=== PATIENT | male | born 1955 | race Caucasian/White ===

== ENCOUNTER → 2016-02-20 | Outpatient (CLI) | payer MEDICARE ==
[~2016-02-20] MED LIST: ALPR.25 PO; CIAL5TAB PO; DEXA4TAB PO; DIPH2%T PO; GADODIAMIDE PF 287 MG/ML 20 ML VIAL (for RAD MRI) IV ONE; HYDR-3580 PO; OXCA300T2 PO; PROT40TA PO; TAB-TAB PO; TEST1.623 TOP; VIIB40TA PO; [UNRECOGNIZED DRUG - CODE] PO
--- NOTE | 2016-02-20 15:08 | RADRPT ---
EXAM DATE/TIME: 02/20/2016 13:41 CORRECTION Corrected on: March 11, 2016; [facility] COMPARISON: MRI BRAIN STEALTH W CONTRAST, February 20, 2015, 15:22. MRI BRAIN PERFUSION W CONTRAST, December 05, 2015, 13:35. INDICATIONS : Glioblastoma. History of tumor resection. CONTRAST: 20 cc Omniscan (gadodiamide) IV MEDICAL HISTORY : Glioblastoma. SURGICAL HISTORY : Discectomy, lumbar. Brain tumor resection, 2011 & 2014. ENCOUNTER: Initial ACUITY: 1 day PAIN SCORE: 0/10 LOCATION: cranial TECHNIQUE: Whole brain MR perfusion was performed. Parametric maps generated included time to peak, mean transi t time, cerebral blood volume and cerebral blood flow. FINDINGS: MR perfusion of the brain with parametric maps are stable. There is no evidence of increased blood f low or blood volume in the left temporal lobe. Focal postsurgical encephalomalacia surrounding gliosi s is again noted. There is dose of increasing mass effect or edema. CONCLUSION: Stable perfusion scan of the brain with no findings suspicious for recurrent neoplasm. Bobo Cantu MD on February 20, 2016 at 15:02 Board Certified Radiologist. This report was verified electronically. Bobo Cantu MD on March 11, 2016 at 14:57 Board Certified Radiologist. This report was verified electronically.
== END ==
LOC: HRAD 12:56
DX: C71.9 Malignant neoplasm of brain, unspecified (principal); T50.905A Adverse effect of unspecified drugs, medicaments and biological substances, initial encounter; Z79.899 Other long term (current) drug therapy
CPT/HCPCS: 70552; A9579

== ENCOUNTER → 2016-05-18 | Outpatient (CLI) | payer MEDICARE ==
--- NOTE | 2016-05-18 16:51 | RADRPT ---
EXAM DATE/TIME: 05/18/2016 15:31 [facility] COMPARISON: MRI BRAIN PERFUSION W CONTRAST, February 20, 2016, 13:41. INDICATIONS : Mass. CONTRAST: 20 cc Omniscan (gadodiamide) IV MEDICAL HISTORY : Chemotherapy. SURGICAL HISTORY : Fusion, lumbar. Craniotomy. ENCOUNTER: Sequela ACUITY: > 1 year PAIN SCORE: 0/10 LOCATION: head TECHNIQUE: Whole brain MR perfusion was performed. Parametric maps generated included time to peak, mean transi t time, cerebral blood volume and cerebral blood flow. FINDINGS: Post surgical changes in the left temporal lobe are stable. There is an overlying craniotomy defect a nd postsurgical encephalomalacia. There is no evidence of increasing mass effect, edema or restricted diffusion. Perfusion imaging demonstrates stable low blood volume in this area. CONCLUSION: Stable perfusion in the left temporal lobe with no findings suggestive of recurrent n eoplasm. Bobo Cantu MD on May 18, 2016 at 16:43 Board Certified Radiologist. This report was verified electronically.
== END ==
LOC: HRAD 14:35
DX: C71.9 Malignant neoplasm of brain, unspecified (principal); Z79.899 Other long term (current) drug therapy
CPT/HCPCS: 70552; A9579

== ENCOUNTER → 2016-09-07 | Outpatient (CLI) | payer MEDICARE ==
[~2016-09-07] MED LIST changes: -GADODIAMIDE PF 287 MG/ML 20 ML VIAL (for RAD MRI) IV ONE; +GADODIAMIDE PF 287 MG/ML 5 ML VIAL (for RAD MRI) IV ONE
--- NOTE | 2016-09-07 18:24 | RADRPT ---
EXAM DATE/TIME: 09/07/2016 16:41 [facility] COMPARISON: MRI BRAIN PERFUSION W CONTRAST, December 05, 2015, 13:35. MRI BRAIN PERFUSION W CONTRAST, February 20, 2016, 13:41. MRI BRAIN PERFUSION W CONTRAST, May 18, 2016, 15:31. INDICATIONS : Prior GBM4/ CONTRAST: 20 cc Omniscan (gadodiamide) IV MEDICAL HISTORY : GMB in 2011 SURGICAL HISTORY : Fusion, lumbar. GBM removed in 2011, Tumor removed in 2015 ENCOUNTER: Sequela ACUITY: 1 day PAIN SCORE: 10 LOCATION: Bilateral cranial TECHNIQUE: Whole brain MR perfusion was performed. Parametric maps generated included time to peak, mean transi t time, cerebral blood volume and cerebral blood flow. FINDINGS: History of prior surgical resection of left temporal tumor. No asymmetries of blood flow, symmetric transit time and symmetric transit time. CONCLUSION: No evidence of recurrent tumor by perfusion imaging. Donta Mccurdy MD on September 07, 2016 at 18:17 Board Certified Radiologist. This report was verified electronically.
== END ==
LOC: HRAD 15:50
DX: C71.9 Malignant neoplasm of brain, unspecified (principal); Z79.899 Other long term (current) drug therapy
CPT/HCPCS: 70552; A9579

== ENCOUNTER 2016-11-16 10:55 | Inpatient (IN) | payer MEDICARE ==
[2016-11-16] VITALS (11 sets, daily range): BP systolic 101–146; BP diastolic 73–92; PULSE 73–178; RESP 14–16; TEMP 98.2–98.6; O2SAT 94–98
[~2016-11-16 10:55] MED LIST changes: -GADODIAMIDE PF 287 MG/ML 5 ML VIAL (for RAD MRI) IV ONE
[2016-11-16] MEDS ORDERED: SODIUM CHLORIDE 0.9% FLUSH 5 ML FLUSH IV FLUSH PRN (11:15)
--- NOTE | 2016-11-16 11:24 | PD ---
HPI Chief Complaint: Neuro Symptoms/ Deficits Time Seen by Provider: 11:05 Travel History International Travel<30 days: Yes Contact w/Intl Traveler<30days: Yes Name of Country Traveled to: [place] Traveled to known affect area: No History of Present Illness HPI Patient is a 61-year-old male with a history of glioblastoma status post resection by Dr. Garcia, presents emergency department for evaluation of altered mental status. According to the the patient over the past 34 days he's had increasing aphasia both receptive and expressive. His oncologist in [place] increased his Decadron from 1 mg twice a day to 2 mg twice a day. He has not had any fevers nausea vomiting but has been complaining of a headache on the left side of his head. Patient for me is alert and oriented but when asked to do mathematical skills or reading skills is having some trouble. He certainly is anxious over this situation. He is oriented to person place and self. He is not currently on chemotherapy nor radiation. Symptoms are moderate , rapidly worsening. PFSH Past Medical History Cancer: Yes (GLIOBLASTOMA, ASTROCYTOMA) Cardiovascular Problems: No Chemotherapy: Yes Diabetes: No Endocrine: Yes (LOW TESTOSTERONE) Genitourinary: No Headaches: Yes Hepatitis: No Hiatal Hernia: No Immune Disorder: No Implanted Vascular Access Dvce: Yes Musculoskeletal: No Neurologic: Yes (BRAIN MASS, RESECTED X 2) Psychiatric: No Reproductive: No Respiratory: No Immunizations Current: Yes Radiation Therapy: Yes Seizures: Yes (ABSENT SEIZURES) Thyroid Disease: No Past Surgical History Abdominal Surgery: Yes (HERNIA REPAIR CHILD) Body Medical Devices: infusaport LT CHEST Neurologic Surgery: Yes (TUMOR RESECTION X 2) Pacemaker: No Social History Alcohol Use: Yes (FORMERLY EVERY DAY, NOW RARE) Tobacco Use: No (FORMER) Substance Use: No Allergies-Medications (Allergen,Severity, Reaction): Coded Allergies: corn syrup (Unverified Allergy, Severe, MIGRAINE, FLU LIKE SYMPTOMS, ) HIGH FRUCTOSE CORN SYRUP ONLY levetiracetam (Unverified Allergy, Severe, Rash, 11/16/16) eletriptan (Verified Allergy, Intermediate, SERATONIN SYNDROM, 11/16/16) lacosamide (Verified Allergy, Intermediate, INCREASED APHASIA, PSYCHOSIS, 11/16/16) phenytoin (Unverified Allergy, Unknown, 11/16/16) Reported Meds & Prescriptions Reported Meds & Active Scripts Active Reported Ibuprofen 400 Mg Tab 400 Mg PO Q6H PRN Multivitamins (Multiple Vitamin) 1 Cap Cap 1 Cap PO DAILY Sildenafil 20 Mg Tab 20 Mg PO DIRECTED Testosterone Cypionate Inj (Testosterone Cypionate) 100 Mg/Ml Inj 0.75 Ml IM Q21D Pantoprazole (Pantoprazole Sodium) 40 Mg Tab 40 Mg PO DAILY Alprazolam 1 Mg Tab 1 Mg PO Q8H PRN Dexamethasone 0.5 Mg Tab 0.5 Mg PO HS Dexamethasone 1.5 Mg Tab 1.5 Mg PO DAILY Oxcarbazepine 300 Mg Tab 300 Mg PO BID Viibryd (Vilazodone) 20 Mg Tab 20 Mg PO HS Review of Systems Except as stated in HPI: all other systems reviewed are Neg Physical Exam Narrative GENERAL: Well-developed, well-nourished, moderately anxious. SKIN: Focused skin assessment warm/dry. HEAD: Atraumatic. Normocephalic. EYES: Pupils equal and round. No scleral icterus. No injection or drainage. ENT: No nasal bleeding or discharge. Mucous membranes pink and moist. NECK: Trachea midline. No JVD. CARDIOVASCULAR: Regular rate and rhythm. No murmur appreciated. RESPIRATORY: No accessory muscle use. Clear to auscultation. Breath sounds equal bilaterally. GASTROINTESTINAL: Abdomen soft, non-tender, nondistended. Hepatic and splenic margins not palpable. MUSCULOSKELETAL: No obvious deformities. No clubbing. No cyanosis. No edema. NEUROLOGICAL: Awake and alert. Oriented 4. Cranial nerves II through XII are grossly intact and nonfocal. There is 5 out of 5 strength in all 4 extremities. Patient's speech is normal however he is having difficulty finding some words. When asked 7+7 he responds 24 and then questions me multiple times about 77 versus 72 and tries to change the questioning per PSYCHIATRIC: Appropriate mood and affect; insight and judgment normal. Data Data Last Documented VS Vital Signs Date Time Temp Pulse Resp B/P (MAP) Pulse Ox O2 Delivery O2 Flow Rate FiO2 11/16/16 11:10 16 16 97 Room Air 11/16/16 11:00 98.6 146/92 (110) Orders Orders Electrocardiogram (11/16/16 11:12) Complete Blood Count With Diff (11/16/16 11:12) Comprehensive Metabolic Panel (11/16/16 11:12) Creatine Kinase (Cpk) (11/16/16 11:12) Prothrombin Time / Inr (Pt) (11/16/16 11:12) Act Partial Throm Time (Ptt) (11/16/16 11:12) Troponin I (11/16/16 11:12) Thyroid Stimulating Hormone (11/16/16 11:12) Urinalysis - C+S If Indicated (11/16/16 11:12) Ct Brain W/O Iv Contrast(Rout) (11/16/16 11:12) Blood Glucose (11/16/16 11:12) Ecg Monitoring (11/16/16 11:12) Iv Access Insert/Monitor (11/16/16 11:12) Oximetry (11/16/16 11:12) Sodium Chloride 0.9% Flush (Ns Flush) (11/16/16 11:15) Carbamazepine (Tegretol) (11/16/16 11:12) Dexamethasone Inj (Decadron Inj) (11/16/16 11:45) Consult Neurosurgery (11/16/16 ) Consult Neurology (11/16/16 ) Admit Order (Ed Use Only) (11/16/16 ) Labs Laboratory Tests Test 11/16/16 11:25 11/16/16 12:00 White Blood Count 9.1 TH/MM3 Red Blood Count 5.23 MIL/MM3 Hemoglobin 15.5 GM/DL Hematocrit 46.9 % Mean Corpuscular Volume 89.7 FL Mean Corpuscular Hemoglobin 29.7 PG Mean Corpuscular Hemoglobin Concent 33.1 % Red Cell Distribution Width 14.3 % Platelet Count 171 TH/MM3 Mean Platelet Volume 7.4 FL Neutrophils (%) (Auto) 78.1 % Lymphocytes (%) (Auto) 14.1 % Monocytes (%) (Auto) 6.3 % Eosinophils (%) (Auto) 0.6 % Basophils (%) (Auto) 0.9 % Neutrophils # (Auto) 7.0 TH/MM3 Lymphocytes # (Auto) 1.3 TH/MM3 Monocytes # (Auto) 0.6 TH/MM3 Eosinophils # (Auto) 0.1 TH/MM3 Basophils # (Auto) 0.1 TH/MM3 CBC Comment DIFF FINAL Differential Comment Prothrombin Time 10.0 SEC Prothromb Time International Ratio 0.9 RATIO Activated Partial Thromboplast Time 25.0 SEC Blood Urea Nitrogen 14 MG/DL Creatinine 0.89 MG/DL Random Glucose 126 MG/DL Total Protein 6.5 GM/DL Albumin 3.3 GM/DL Calcium Level 8.1 MG/DL Alkaline Phosphatase 79 U/L Aspartate Amino Transf (AST/SGOT) 10 U/L Alanine Aminotransferase (ALT/SGPT) 33 U/L Total Bilirubin 0.5 MG/DL Sodium Level 138 MEQ/L Potassium Level 3.7 MEQ/L Chloride Level 104 MEQ/L Carbon Dioxide Level 28.3 MEQ/L Anion Gap 6 MEQ/L Estimat Glomerular Filtration Rate 87 ML/MIN Total Creatine Kinase 48 U/L Troponin I LESS THAN 0.02 NG/ML Thyroid Stimulating Hormone 3rd Gen 1.790 uIU/ML Carbamazepine (Tegretol) Level LESS THAN 0.5 MCG/ML Urine Color YELLOW Urine Turbidity CLEAR Urine pH 7.0 Urine Specific Reader 1.008 Urine Protein NEG mg/dL Urine Glucose (UA) NEG mg/dL Urine Ketones NEG mg/dL Urine Occult Blood NEG Urine Nitrite NEG Urine Bilirubin NEG Urine Leukocyte Esterase NEG Urine WBC 0-2 /hpf Urine Squamous Epithelial Cells 0-5 /hpf Microscopic Urinalysis Comment CULT NOT INDICATED MDM Medical Decision Making Medical Screen Exam Complete: Yes Emergency Medical Condition: Yes Interpretation(s) EKG shows normal sinus rhythm normal axis normal R-wave progression. No concerning ST segment changes. Intervals within normal limits. This is a normal EKG. Differential Diagnosis Cerebral edema, recurrent tumor, electrolyte abnormality, Tegretol toxicity. Narrative Course Patient roomed emergency department, has a history of glioblastoma of the temporal lobe, presents emergency department with a few day history of expressive and receptive aphasia. Patient today was noted by to have decreased concentration, inappropriate answers and decided to come in and be seen. CAT scan of the head shows significant edema of the left side with left to right shift. The patient was discussed with his neurologist Dr. Cabral as well as Dr. Woodall was chief telephone operator for his surgeon Dr. Stevens. The patient is followed by an oncologist in [place] who recently increased his Decadron 2 mg by mouth twice a day. He was given 10 mg of Decadron in the emergency department, patient per Dr. Woodall should be admitted to the intensive surgical unit at the [facility]. MRI has been suggested by radiologist as well as Dr. Woodall which has been ordered. Coordinating with EMS patient is stabilized the best my ability. Critical Care Narrative Aggregate critical care time was 35 minutes. Time to perform other separately billable procedures was not included in the critical care time. My time did not include minutes spent treating any other patients simultaneously or on activities that did not directly contribute to the patient's treatment. The services I provided to this patient were to treat and/or prevent clinically significant deterioration that could result in: , disability, organ failure I provided critical care services requiring my management, as noted below: Chart data review, documentation time, medication orders and management, vital sign assessments/reviewing monitor data, ordering and reviewing lab tests, ordering and interpreting/reviewing x-rays and diagnostic studies, care of the patient and discussion of the patient with the admitting physicians. Diagnosis Primary Impression: Cerebral edema Admitting Information Admitting Physician Requests: Admit Condition: Nhan Jennings MD Nov 16, 2016 11:24
[2016-11-16 11:36] LABS: BASOPHIL # 0.1 TH/MM3 (0-0.2); BASOPHIL % 0.9 % (0.0-2.0); EOSINOPHIL # 0.1 TH/MM3 (0-0.4); EOSINOPHIL % 0.6 % (0.0-4.0); HEMATOCRIT 46.9 % (39.0-51.0); LYMPH % 14.1 % (9.0-44.0); LYMPHOCYTE # 1.3 TH/MM3 (1.0-4.8); MEAN CELL VOLUME 89.7 FL (80.0-100.0); MEAN CORPUSCULAR HEMOGLOBIN 29.7 PG (27.0-34.0); MEAN CORPUSCULAR HGB CONC 33.1 % (32.0-36.0); MONO % 6.3 % (0.0-8.0); NEUT % 78.1 % (16.0-70.0); PLATELET COUNT 171 TH/MM3 (150-450); RED BLOOD COUNT 5.23 MIL/MM3 (4.50-5.90); RED CELL DISTRIBUTION WIDTH 14.3 % (11.6-17.2); WHITE BLOOD COUNT 9.1 TH/MM3 (4.0-11.0)
[2016-11-16] MEDS ORDERED: VIIB20TA PO (11:37)
[2016-11-16] MEDS ORDERED: IBUP400T20 PO (11:37)
[2016-11-16] MEDS ORDERED: TEST1INJ3 IM (11:37)
[2016-11-16] MEDS ORDERED: OXCA300T PO (11:37)
[2016-11-16] MEDS ORDERED: SILD20TA11 PO (11:37)
[2016-11-16] MEDS ORDERED: DEXA0.5T PO (11:37)
[2016-11-16] MEDS ORDERED: MULTCAP3 PO (11:37)
[2016-11-16] MEDS ORDERED: PANT40TA3 PO (11:37)
[2016-11-16] MEDS ORDERED: ALPR1TAB3 PO (11:37)
[2016-11-16] MEDS ORDERED: DEXA1.5T PO (11:37)
[2016-11-16 11:38] LABS: HEMO FLAGS DIFF FINAL
[2016-11-16] MEDS ORDERED: DEXAMETHASONE SOD PHOS 20 MG/5 ML VIAL IV PUSH ONE (11:45)
--- NOTE | 2016-11-16 11:52 | RADRPT ---
EXAM DATE/TIME: 11/16/2016 11:28 [facility] COMPARISON: MRI BRAIN PERFUSION W CONTRAST, September 07, 2016, 16:41. CT BRAIN W/O CONTRAST, August 07, 2011, 9:15. INDICATIONS : Aphasia. RADIATION DOSE: 58.35 CTDIvol (mGy) MEDICAL HISTORY : Glioblastoma. Astrocytoma. SURGICAL HISTORY : Brain tumor resection, twice-last one about over a year ago. ENCOUNTER: Initial ACUITY: 3 weeks PAIN SCALE: 0/10 LOCATION: Cranial TECHNIQUE: Multiple contiguous axial images were obtained of the head. Using automated exposure control and adj ustment of the mA and/or kV according to patient size, radiation dose was kept as low as reasonably a chievable to obtain optimal diagnostic quality images. DICOM format image data is available electro nically for review and comparison. FINDINGS: There has been deterioration in the appearance of the scan with increasing edema in the left temporal lobe extending into left parieto-occipital region when compared to the study of 07/2011 and the most recent MRI perfusion study. Posterior fossa is unremarkable. There is very minimal left to right shift. Findings have been discussed with Dr. Bunn. MRI with contrast pending. CONCLUSION: Deterioration in appearance of scan as described above. Contrast MRI is pending. Ronaldo Franco MD FACR on November 16, 2016 at 11:39 Board Certified Radiologist. This report was verified electronically.
[2016-11-16 11:53] LABS: CHLORIDE 104 MEQ/L (98-107); POTASSIUM 3.7 MEQ/L (3.5-5.1); SODIUM (NA) 138 MEQ/L (136-145)
[2016-11-16 11:57] LABS: ANION GAP 6 MEQ/L (5-15); BICARBONATE 28.3 MEQ/L (21.0-32.0); BLOOD UREA NITROGEN 14 MG/DL (7-18)
[2016-11-16 11:59] LABS: INTERNATIONAL NORMALIZED RATIO 0.9 RATIO
[2016-11-16 12:00] LABS: ALT (GPT) 33 U/L (12-78); AST (GOT) 10 U/L (15-37); GLOMERULAR FILTRATION RATE 87 ML/MIN (>89)
[2016-11-16 12:01] LABS: TOTAL BILIRUBIN ADULT 0.5 MG/DL (0.2-1.0)
[2016-11-16 12:03] LABS: ALKALINE PHOSPHATASE 79 U/L (45-117)
[2016-11-16 12:09] LABS: BLOOD, URINE NEG (NEG); GLUCOSE,URINE NEG (NEG); KETONE, URINE NEG (NEG); NITRITE,URINE NEG (NEG)
[2016-11-16 12:16] LABS: URINE COLOR YELLOW (YELLW/STRAW)
[2016-11-16 12:17] LABS: COMMENT (UR) CULT NOT INDICATED; CULTURE IF INDICATED CULT NOT INDICATED; SQUAMOUS EPITHELIAL CELL URINE 0-5 /hpf (0-5); WBC, URINE 0-2 /hpf (0-5)
[2016-11-16 12:20] LABS: CREATINE KINASE 48 U/L (39-308)
--- NOTE | 2016-11-16 12:59 | HHI.HP ---
[facility] Service Critical Care Medicine Primary Care Physician Felipe Yates, DO Admission Diagnosis Cerebral Edema Diagnosis: Chief Complaint: Headache Travel History International Travel<30 Days: Yes Contact w/Intl Traveler <30 Da: Yes Name of Country Traveled to: [place] Traveled to Known Affected Are: No History of Present Illness 61 y/o man s/p resection of left hemispheric glioblastoma presents with neurological symptoms and CT evidence of mass effect from tumor recurrence left parietal region. Received decadron in [facility] ED and now transferred to [facility]. Past Family Social History Allergies: Coded Allergies: corn syrup (Unverified Allergy, Severe, MIGRAINE, FLU LIKE SYMPTOMS, ) HIGH FRUCTOSE CORN SYRUP ONLY levetiracetam (Unverified Allergy, Severe, Rash, 11/16/16) eletriptan (Verified Allergy, Intermediate, SERATONIN SYNDROM, 11/16/16) lacosamide (Verified Allergy, Intermediate, INCREASED APHASIA, PSYCHOSIS, 11/16/16) phenytoin (Unverified Allergy, Unknown, 11/16/16) Past Medical History Past Medical History Cancer: Yes (GLIOBLASTOMA, ASTROCYTOMA) Cardiovascular Problems: No Chemotherapy: Yes Diabetes: No Endocrine: Yes (LOW TESTOSTERONE) Genitourinary: No Headaches: Yes Hepatitis: No Hiatal Hernia: No Immune Disorder: No Implanted Vascular Access Dvce: Yes Musculoskeletal: No Neurologic: Yes (BRAIN MASS, RESECTED X 2) Psychiatric: No Reproductive: No Respiratory: No Immunizations Current: Yes Radiation Therapy: Yes Seizures: Yes (ABSENT SEIZURES) Thyroid Disease: No Past Surgical History Abdominal Surgery: Yes (HERNIA REPAIR CHILD) Body Medical Devices: infusaport LT CHEST Neurologic Surgery: Yes (TUMOR RESECTION X 2) Pacemaker: No Social History Alcohol Use: Yes (FORMERLY EVERY DAY, NOW RARE) Tobacco Use: No (FORMER) Substance Use: No Allergies-Medications Allergies-Medications (Allergen,Severity, Reaction): Coded Allergies: corn syrup (Unverified Allergy, Severe, MIGRAINE, FLU LIKE SYMPTOMS, ) HIGH FRUCTOSE CORN SYRUP ONLY levetiracetam (Unverified Allergy, Severe, Rash, 11/16/16) eletriptan (Verified Allergy, Intermediate, SERATONIN SYNDROM, 11/16/16) lacosamide (Verified Allergy, Intermediate, INCREASED APHASIA, PSYCHOSIS, 11/16/16) phenytoin (Unverified Allergy, Unknown, 11/16/16) Reported Meds & Prescriptions Reported Meds & Active Scripts Active Protonix (Pantoprazole Sodium) 40 Mg Tabdr 40 Mg PO DAILY Decadron 4 mg (Dexamethasone) 4 Mg Tab 1 Tab PO BID 30 Days Hydrocodone/Acetaminophen 7.5 mg/325 mg 1 Tab 1 Tab PO Q6H Xanax 0.25 Mg (Alprazolam) Alprazolam 0.25 mg Tab 1 Tab PO Q8HR PRN Reported Papaya Enzyme (Papaya) Chw 2 Chew PO HS PRN Multivitamin (Multivitamins) 1 Tab Tab 1 Tab PO DAILY Benadryl (Diphenhydramine HCl) 25 Mg Cap 25 Mg PO HS PRN Viibryd (Vilazodone) 40 Mg Tab 20 Mg PO BID Cialis (Tadalafil) 5 Mg Tab 5 Mg PO QID Androgel (Testosterone) 1.62 % Gel 1.62 % TOP DAILY 2 "PUMPS", PER SPOUSE Oxcarbazepine 300 Mg Tab 600 Mg PO BID Physical Exam Vital Signs Vital Signs Date Time Temp Pulse Resp B/P (MAP) Pulse Ox O2 Delivery O2 Flow Rate FiO2 11/16/16 12:51 79 16 124/83 (97) 96 11/16/16 11:10 16 16 97 Room Air 11/16/16 11:00 16 96 Room Air 11/16/16 11:00 98.6 73 16 146/92 (110) 96 Physical Exam GENERAL: Anxious male. HEAD: Atraumatic. Normocephalic. EYES: Pupils equal and round. NECK: Trachea midline. Airway widely patent. CARDIOVASCULAR: Regular rate and rhythm. No murmur appreciated. No JVD. RESPIRATORY: No accessory muscle use. Clear to auscultation. Breath sounds equal bilaterally. GASTROINTESTINAL: Abdomen soft, non-tender, nondistended. No guarding. MUSCULOSKELETAL: No obvious deformities. No clubbing. No cyanosis. No edema. Well perfused. NEUROLOGICAL: Awake and alert. Oriented 3. 5 out of 5 strength in all 4 extremities. Patient is having difficulty finding words. Laboratory Laboratory Tests Test 11/16/16 11:25 11/16/16 12:00 White Blood Count 9.1 Red Blood Count 5.23 Hemoglobin 15.5 Hematocrit 46.9 Mean Corpuscular Volume 89.7 Mean Corpuscular Hemoglobin 29.7 Mean Corpuscular Hemoglobin Concent 33.1 Red Cell Distribution Width 14.3 Platelet Count 171 Mean Platelet Volume 7.4 Neutrophils (%) (Auto) 78.1 Lymphocytes (%) (Auto) 14.1 Monocytes (%) (Auto) 6.3 Eosinophils (%) (Auto) 0.6 Basophils (%) (Auto) 0.9 Neutrophils # (Auto) 7.0 Lymphocytes # (Auto) 1.3 Monocytes # (Auto) 0.6 Eosinophils # (Auto) 0.1 Basophils # (Auto) 0.1 CBC Comment DIFF FINAL Differential Comment Prothrombin Time 10.0 Prothromb Time International Ratio 0.9 Activated Partial Thromboplast Time 25.0 Blood Urea Nitrogen 14 Creatinine 0.89 Random Glucose 126 Total Protein 6.5 Albumin 3.3 Calcium Level 8.1 Alkaline Phosphatase 79 Aspartate Amino Transf (AST/SGOT) 10 Alanine Aminotransferase (ALT/SGPT) 33 Total Bilirubin 0.5 Sodium Level 138 Potassium Level 3.7 Chloride Level 104 Carbon Dioxide Level 28.3 Anion Gap 6 Estimat Glomerular Filtration Rate 87 Total Creatine Kinase 48 Troponin I LESS THAN 0.02 Thyroid Stimulating Hormone 3rd Gen 1.790 Carbamazepine (Tegretol) Level LESS THAN 0.5 Urine Color YELLOW Urine Turbidity CLEAR Urine pH 7.0 Urine Specific [place] 1.008 Urine Protein NEG Urine Glucose (UA) NEG Urine Ketones NEG Urine Occult Blood NEG Urine Nitrite NEG Urine Bilirubin NEG Urine Leukocyte Esterase NEG Urine WBC 0-2 Urine Squamous Epithelial Cells 0-5 Microscopic Urinalysis Comment CULT NOT INDICATED Result Diagram: 11/16/16 1125 11/16/16 1125 Caprini VTE Risk Assessment Caprini VTE Risk Assessment: Mod/High Risk (score >= 2) Caprini Risk Assessment Model Point Value = 1 Point Value = 2 Point Value = 3 Point Value = 5 Age 41-60 Minor surgery BMI > 25 kg/m2 Swollen legs Varicose veins or History of unexplained or recurrent spontaneous Oral contraceptives or hormone replacement Sepsis (< 1 month) Serious lung disease, including pneumonia (< 1 month) Abnormal pulmonary function Acute myocardial infarction Congestive heart failure (< 1 month) History of inflammatory bowel disease Medical patient at bed rest Age 61-74 Arthroscopic surgery Major open surgery (> 45 min) Laparoscopic surgery (> 45 min) Malignancy Confined to bed (> 72 hours) Immobilizing plaster cast Central venous access Age >= 75 History of VTE Family history of VTE Factor V Leiden Prothrombin [id number] Lupus anticoagulant Anticardiolipin antibodies Elevated serum homocysteine Heparin-induced thrombocytopenia Other congenital or acquired thrombophilia Stroke (< 1 month) Elective arthroplasty Hip, pelvis, or leg fracture Acute spinal cord injury (< 1 month) Prophylaxis Regimen Total Risk Factor Score Risk Level Prophylaxis Regimen 0-1 Low Early ambulation 2 Moderate Order ONE of the following: *Sequential Compression Device (SCD) *Heparin 5000 units SQ BID 3-4 Higher Order ONE of the following medications: *Heparin 5000 units SQ TID *Enoxaparin/Lovenox 40 mg SQ daily (WT < 150 kg, CrCl > 30 mL/min) *Enoxaparin/Lovenox 30 mg SQ daily (WT < 150 kg, CrCl > 10-29 mL/min) *Enoxaparin/Lovenox 30 mg SQ BID (WT < 150 kg, CrCl > 30 mL/min) AND/OR *Sequential Compression Device (SCD) 5 or more Highest Order ONE of the following medications: *Heparin 5000 units SQ TID (Preferred with Epidurals) *Enoxaparin/Lovenox 40 mg SQ daily (WT < 150 kg, CrCl > 30 mL/min) *Enoxaparin/Lovenox 30 mg SQ daily (WT < 150 kg, CrCl > 10-29 mL/min) *Enoxaparin/Lovenox 30 mg SQ BID (WT < 150 kg, CrCl > 30 mL/min) AND *Sequential Compression Device (SCD) Assessment and Plan Assessment and Plan Assessment: 1. Glioblastoma left hemisphere. Plan: 1. Decadron. 2. Minimal iv fluid. 3. Mannitol prn. 4. protonix. 5. SCDs. 6. Tylenol for headache. 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 Critical cerebral edema requiring immediate decadron therapy increase and possibly mannitol if he becomes more lethargic. Critical care 38 mins Dmitry Mims MD Nov 16, 2016 12:59
[2016-11-16] MEDS ORDERED: ALPRAZolam 1 MG TAB PO ONE (13:00)
[2016-11-16] MEDS ORDERED: BISACODYL 10 MG SUPP RECTAL PRN (13:15)
[2016-11-16] MEDS ORDERED: LACTULOSE SYRUP 20 GM/30 ML CUP PO PRN (13:15)
[2016-11-16] MEDS ORDERED: MAGNESIUM HYDROXIDE SUSP 30 ML CUP PO PRN (13:15)
[2016-11-16] MEDS ORDERED: ALPRAZolam 0.5 MG TAB PO ONE (13:15)
[2016-11-16] MEDS ORDERED: SENNOSIDES 8.6 MG TAB PO PRN (13:15)
[2016-11-16] MEDS ORDERED: ONDANSETRON HCL 4 MG/2 ML VIAL IV PUSH PRN (13:15)
[2016-11-16] MEDS ORDERED: CHLORHEXIDINE GLUCONATE 2 % 1 PACK (2 CLOTHS) TOP PRN (13:15)
[2016-11-16] MEDS ORDERED: MISCELLANEOUS NURSING INFORMATION XX SCH (13:15)
[2016-11-16] MEDS ORDERED: ALPRAZolam 1 MG TAB PO PRN (13:15)
[2016-11-16] MEDS: ACETAMINOPHEN 325 MG TAB PO PRN (13:43)
[2016-11-16] MEDS ORDERED: GADODIAMIDE PF 287 MG/ML 5 ML VIAL (for RAD MRI) IVCONTRAST ONE (14:46)
[2016-11-16] MEDS: SODIUM CHLOR 0.9% 1000 ML INJ 1,000 ML IV SCH (15:06)
--- NOTE | 2016-11-16 15:19 | RADRPT ---
EXAM DATE/TIME: 11/16/2016 14:29 [facility] COMPARISON: MRI BRAIN PERFUSION W CONTRAST, December 05, 2015, 13:35. INDICATIONS : Tumor. CONTRAST: 18 cc Omniscan (gadodiamide) IV MEDICAL HISTORY : Glioblastoma. SURGICAL HISTORY : Craniotomy. Discectomy, lumbar. Brain tumor resection, 2011 & 2016. ENCOUNTER: Sequela ACUITY: > 1 year PAIN SCORE: 3/10 LOCATION: Cranial TECHNIQUE: Multiplanar, multisequence MRI of the brain was performed both prior to and following the administration of paramagnetic contrast. FINDINGS: There is a large area of vasogenic edema that extends from the temporal lobe into the r ight parietal occipital region. There is a separate small focus of edema in the orbital frontal douglas on. Following intravenous administration of contrast there is patchy contrast enhancement through a large portion of this area all suspicious for recurrent tumor. There is approximately 4 mm of left to righ t shift. There is no parenchymal hemorrhage. The right hemisphere is unremarkable. Posterior fossa appears normal. CONCLUSION: 1. Findings would be consistent with recurrent tumor and increasing vasogenic edema that now involves the left parietal occipital region. 2. I do not have any interval MRIs. Ronaldo Franco MD FACR on November 16, 2016 at 15:08 Board Certified Radiologist. This report was verified electronically.
--- NOTE | 2016-11-16 16:04 | EKG ---
Date Performed: 11/16/2016 Time Performed: 11:20:33 PTAGE: 61 years EKG: Sinus rhythm Compared to prior tracing no significant change NORMAL ECG PREVIOUS TRACING : 02/13/2015 13.30 DOCTOR: Xander Francis Interpretating Date/Time 11/16/2016 16:02:13
--- NOTE | 2016-11-16 16:49 | PD.CONS ---
HPI Consult Requested By Primary Care Physician Felipe Yates, DO Past Family Social History Allergies: Coded Allergies: corn syrup (Unverified Allergy, Severe, MIGRAINE, FLU LIKE SYMPTOMS, ) HIGH FRUCTOSE CORN SYRUP ONLY levetiracetam (Unverified Allergy, Severe, Rash, 11/16/16) eletriptan (Verified Allergy, Intermediate, SERATONIN SYNDROM, 11/16/16) lacosamide (Verified Allergy, Intermediate, INCREASED APHASIA, PSYCHOSIS, 11/16/16) phenytoin (Unverified Allergy, Unknown, 11/16/16) Physical Exam Vital Signs Vital Signs Date Time Temp Pulse Resp B/P (MAP) Pulse Ox O2 Delivery O2 Flow Rate FiO2 11/16/16 14:57 16 11/16/16 14:54 80 16 126/83 (97) 96 Room Air 11/16/16 13:40 77 16 142/85 (104) 96 Room Air 11/16/16 12:51 79 16 124/83 (97) 96 11/16/16 11:10 16 16 97 Room Air 11/16/16 11:00 16 96 Room Air 11/16/16 11:00 98.6 73 16 146/92 (110) 96 Laboratory Laboratory Tests Test 11/16/16 11:25 11/16/16 12:00 White Blood Count 9.1 Red Blood Count 5.23 Hemoglobin 15.5 Hematocrit 46.9 Mean Corpuscular Volume 89.7 Mean Corpuscular Hemoglobin 29.7 Mean Corpuscular Hemoglobin Concent 33.1 Red Cell Distribution Width 14.3 Platelet Count 171 Mean Platelet Volume 7.4 Neutrophils (%) (Auto) 78.1 Lymphocytes (%) (Auto) 14.1 Monocytes (%) (Auto) 6.3 Eosinophils (%) (Auto) 0.6 Basophils (%) (Auto) 0.9 Neutrophils # (Auto) 7.0 Lymphocytes # (Auto) 1.3 Monocytes # (Auto) 0.6 Eosinophils # (Auto) 0.1 Basophils # (Auto) 0.1 CBC Comment DIFF FINAL Differential Comment Prothrombin Time 10.0 Prothromb Time International Ratio 0.9 Activated Partial Thromboplast Time 25.0 Blood Urea Nitrogen 14 Creatinine 0.89 Random Glucose 126 Total Protein 6.5 Albumin 3.3 Calcium Level 8.1 Alkaline Phosphatase 79 Aspartate Amino Transf (AST/SGOT) 10 Alanine Aminotransferase (ALT/SGPT) 33 Total Bilirubin 0.5 Sodium Level 138 Potassium Level 3.7 Chloride Level 104 Carbon Dioxide Level 28.3 Anion Gap 6 Estimat Glomerular Filtration Rate 87 Total Creatine Kinase 48 Troponin I LESS THAN 0.02 Thyroid Stimulating Hormone 3rd Gen 1.790 Carbamazepine (Tegretol) Level LESS THAN 0.5 Urine Color YELLOW Urine Turbidity CLEAR Urine pH 7.0 Urine Specific [place] 1.008 Urine Protein NEG Urine Glucose (UA) NEG Urine Ketones NEG Urine Occult Blood NEG Urine Nitrite NEG Urine Bilirubin NEG Urine Leukocyte Esterase NEG Urine WBC 0-2 Urine Squamous Epithelial Cells 0-5 Microscopic Urinalysis Comment CULT NOT INDICATED Result Diagram: 11/16/16 1125 11/16/16 1125 Duncan Woodall MD Nov 16, 2016 16:49
[2016-11-16] MEDS: MORPHINE SULFATE 4 MG/ML INJ IV PUSH PRN ×2 (17:15→20:40)
--- NOTE | 2016-11-16 17:43 | PD.CONS ---
[facility] Service neurosurgery Consult Requested By howard SMITH Reason for Consult brain mass Primary Care Physician Felipe Yates, DO History of Present Illness This is a 61-year-old male with a history of glioblastoma multiforme, status post resection by Dr. Stevens. He presents emergency department for evaluation of altered mental status. According to the the patient over the past days he's had increasing aphasia both receptive and expressive. His oncologist in [place] increased his Decadron from 1 mg twice a day to 2 mg twice a day. He has not had any fevers nausea vomiting but has been complaining of a headache on the left side of his head. Patient for me is alert and oriented but when asked to do mathematical skills or reading skills is having some trouble. He certainly is anxious over this situation. He is oriented to person place and self. He is not currently on chemotherapy nor radiation. His symptoms are rapidly worsening. Review of Systems Endocrine: DENIES: Heat/cold intolerance, Polydipsia, Polyuria, Polyphagia Eyes: COMPLAINS OF: Eye inflammation, DENIES: Blurred vision, Diplopia, Eye pain, Vision loss, Photosensitivity, Double Vision Ears, nose, mouth, throat: DENIES: Tinnitus, Hearing loss, Vertigo, Nasal discharge, Oral lesions, Throat pain, Hoarseness, Ear Pain, Running Nose, Epistaxis, Sinus Pain, Toothache, Odynophagia Respiratory: DENIES: Apneas, Cough, Snoring, Wheezing, Hemoptysis, Sputum production, Shortness of breath Cardiovascular: DENIES: Chest pain, Palpitations, Syncope, Dyspnea on Exertion , PND, Lower Extremity Edema, Orthopnea, Claudication Gastrointestinal: DENIES: Abdominal pain, Black stools, Bloody stools, Constipation, Diarrhea, Nausea, Vomiting, Difficulty Swallowing, Anorexia Genitourinary: DENIES: Sexual dysfunction, Urinary frequency, Urinary incontinence, Urgency, Hematuria, Dysuria, Nocturia, Penile Discharge, Testicular Pain, Testicular Swelling Musculoskeletal: DENIES: Joint pain, Muscle aches, Stiffness, Joint Swelling, Back pain, Neck pain Integumentary: DENIES: Abnormal pigmentation, Nail changes, Pruritus, Rash Hematologic/lymphatic: DENIES: Bruising, Lymphadenopathy Immunologic/allergic: DENIES: Eczema, Urticaria Neurologic: COMPLAINS OF: Headache, DENIES: Abnormal gait, Localized weakness, Paresthesias, Seizures, Speech Problems, Tremor, Poor Balance Psychiatric: COMPLAINS OF: Confusion, DENIES: Anxiety, Mood changes, Depression , Hallucinations, Agitation, Suicidal Ideation, Homicidal Ideation, Delusions Past Family Social History Allergies: Coded Allergies: corn syrup (Unverified Allergy, Severe, MIGRAINE, FLU LIKE SYMPTOMS, ) HIGH FRUCTOSE CORN SYRUP ONLY levetiracetam (Unverified Allergy, Severe, Rash, 11/16/16) eletriptan (Verified Allergy, Intermediate, SERATONIN SYNDROM, 11/16/16) lacosamide (Verified Allergy, Intermediate, INCREASED APHASIA, PSYCHOSIS, 11/16/16) phenytoin (Unverified Allergy, Unknown, 11/16/16) Past Medical History Cancer: Yes (GLIOBLASTOMA, ASTROCYTOMA) Cardiovascular Problems: No Chemotherapy: Yes Diabetes: No Endocrine: Yes (LOW TESTOSTERONE) Genitourinary: No Headaches: Yes Hepatitis: No Hiatal Hernia: No Immune Disorder: No Implanted Vascular Access Dvce: Yes Musculoskeletal: No Neurologic: Yes (BRAIN MASS, RESECTED X 2) Psychiatric: No Reproductive: No Respiratory: No Immunizations Current: Yes Radiation Therapy: Yes Seizures: Yes (ABSENT SEIZURES) Thyroid Disease: No Past Surgical History Abdominal Surgery: Yes (HERNIA REPAIR CHILD) Body Medical Devices: infusaport LT CHEST Neurologic Surgery: Yes (TUMOR RESECTION X 2) Pacemaker: No Reported Medications Protonix (Pantoprazole Sodium) 40 Mg Tabdr 40 Mg PO DAILY Decadron 4 mg (Dexamethasone) 4 Mg Tab 1 Tab PO BID 30 Days Hydrocodone/Acetaminophen 7.5 mg/325 mg 1 Tab 1 Tab PO Q6H Xanax 0.25 Mg (Alprazolam) Alprazolam 0.25 mg Tab 1 Tab PO Q8HR PRN Active Ordered Medications Current Medications IV Flush (NS Flush) 2 ml UNSCH PRN IV FLUSH FLUSH AFTER USING IV ACCESS; Start 11/16/16 at 11:15 Dexamethasone Sodium Phosphate (Decadron Inj) 10 mg ONCE ONCE IV PUSH Last administered on 11/16/16t 11:52; Start 11/16/16 at 11:45; Stop 11/16/16 at 11:48 ; Status DC Alprazolam (Xanax) 1 mg ONCE ONCE PO ; Start 11/16/16 at 13:00; Stop 11/16/16 at 13:16; Status DC Sodium Chloride 1,000 ml @ 20 mls/hr Q24H IV Last administered on 11/17/16 13:54; Start 11/16/16 at 13:04 Acetaminophen (Tylenol) 650 mg Q6H PRN PO PAIN 1-10 AND/OR FEVER >101F Last administered on 11/17/16 14:06; Start 11/16/16 at 13:15 Morphine Sulfate (Morphine Inj) 2 mg Q2H PRN IV PUSH PAIN SCALE 6 TO 10 Last administered on 11/17/16 15:45; Start 11/16/16 at 13:15 Pantoprazole Sodium (Protonix) 40 mg DAILY PO Last administered on 11/17/16 08:01; Start 11/17/16 at 09:00 Ondansetron HCl (Zofran Inj) 4 mg Q6H PRN IV PUSH NAUSEA OR VOMITING; Start at 13:15 Miscellaneous Information 1 Q361D XX ; Start 11/16/16 at 13:15 Chlorhexidine Gluconate (Chlorhexidine 2% Cloth) 3 pack Taper DAILY@04 TOP ; Start 11/17/16 at 04:00; Stop 11/13/17 at 03:59 Chlorhexidine Gluconate (Chlorhexidine 2% Cloth) 3 pack UNSCH PRN TOP HYGIENIC CARE; Start 11/16/16 at 13:15 Senna/Docusate Sodium (Irene-Colace) 1 tab BID PO Last administered on 08:01; Start 11/16/16 at 21:00 Magnesium Hydroxide (Milk Of Magnesia Liq) 30 ml Q12H PRN PO MILD - MODERATE CONSTIPATION; Start 11/16/16 at 13:15 Sennosides (Senokot) 17.2 mg Q12H PRN PO MODERATE - SEVERE CONSTIPATION; Start 11/16/16 at 13:15 Bisacodyl (Dulcolax Supp) 10 mg DAILY PRN RECTAL SEVERE CONSITIPATION; Start 11/16/16 at 13:15 Lactulose (Lactulose Liq) 30 ml DAILY PRN PO SEVERE CONSITIPATION; Start at 13:15 Alprazolam (Xanax) 1 mg Q8H PRN PO ANXIETY; Start 11/16/16 at 13:15 Oxcarbazepine (Trileptal) 300 mg BID PO Last administered on 11/17/16 08:20; Start 11/16/16 at 21:00 Patient Own Medication PT OWN MED: VILAZOD... HS PO ; Start 11/16/16 at 21:00; Status Future Hold Dexamethasone Sodium Phosphate (Decadron Inj) 6 mg Q6HR IV PUSH Last administered on 11/17/16 13:55; Start 11/16/16 at 18:00 Alprazolam (Xanax) 1 mg ONCE ONCE PO Last administered on 11/16/16 13:37; Start 11/16/16 at 13:15; Stop 11/16/16 at 13:16; Status DC Gadodiamide (Omniscan Pf Inj) 18 ml STK-MED ONCE IVCONTRAST Last administered on 11/16/16 14:46; Start 11/16/16 at 14:46; Stop 11/16/16 at 14:47; Status DC Family History His Family history was reviewed and noncontributory to this admission events Social History Alcohol Use: Yes (FORMERLY EVERY DAY, NOW RARE) Tobacco Use: No (FORMER) Substance Use: No Physical Exam Vital Signs Vital Signs Date Time Temp Pulse Resp B/P (MAP) Pulse Ox O2 Delivery O2 Flow Rate FiO2 11/16/16 17:19 16 11/16/16 14:57 16 11/16/16 14:54 80 16 126/83 (97) 96 Room Air 11/16/16 13:40 77 16 142/85 (104) 96 Room Air 11/16/16 12:51 79 16 124/83 (97) 96 11/16/16 11:10 16 16 97 Room Air 11/16/16 11:00 16 96 Room Air 11/16/16 11:00 98.6 73 16 146/92 (110) 96 Physical Exam Mr. Car is alert, confused, oriented to self only. Attempts to converse but dysphasic. Cranial nerve examination: pupils equal, round, and reactive to light. Extra- ocular movements are grossly intact. Facial motor function appears normal and symmetrical. Neck is soft and supple. Motor: moving all four extremities Deep tendon reflexes are 1+ bilaterally. There is a bilateral plantar flexion response. Cerebellar examination is limited due to the patient condition Laboratory Laboratory Tests Test 11/16/16 11:25 11/16/16 12:00 White Blood Count 9.1 Red Blood Count 5.23 Hemoglobin 15.5 Hematocrit 46.9 Mean Corpuscular Volume 89.7 Mean Corpuscular Hemoglobin 29.7 Mean Corpuscular Hemoglobin Concent 33.1 Red Cell Distribution Width 14.3 Platelet Count 171 Mean Platelet Volume 7.4 Neutrophils (%) (Auto) 78.1 Lymphocytes (%) (Auto) 14.1 Monocytes (%) (Auto) 6.3 Eosinophils (%) (Auto) 0.6 Basophils (%) (Auto) 0.9 Neutrophils # (Auto) 7.0 Lymphocytes # (Auto) 1.3 Monocytes # (Auto) 0.6 Eosinophils # (Auto) 0.1 Basophils # (Auto) 0.1 CBC Comment DIFF FINAL Differential Comment Prothrombin Time 10.0 Prothromb Time International Ratio 0.9 Activated Partial Thromboplast Time 25.0 Blood Urea Nitrogen 14 Creatinine 0.89 Random Glucose 126 Total Protein 6.5 Albumin 3.3 Calcium Level 8.1 Alkaline Phosphatase 79 Aspartate Amino Transf (AST/SGOT) 10 Alanine Aminotransferase (ALT/SGPT) 33 Total Bilirubin 0.5 Sodium Level 138 Potassium Level 3.7 Chloride Level 104 Carbon Dioxide Level 28.3 Anion Gap 6 Estimat Glomerular Filtration Rate 87 Total Creatine Kinase 48 Troponin I LESS THAN 0.02 Thyroid Stimulating Hormone 3rd Gen 1.790 Carbamazepine (Tegretol) Level LESS THAN 0.5 Urine Color YELLOW Urine Turbidity CLEAR Urine pH 7.0 Urine Specific [place] 1.008 Urine Protein NEG Urine Glucose (UA) NEG Urine Ketones NEG Urine Occult Blood NEG Urine Nitrite NEG Urine Bilirubin NEG Urine Leukocyte Esterase NEG Urine WBC 0-2 Urine Squamous Epithelial Cells 0-5 Microscopic Urinalysis Comment CULT NOT INDICATED Result Diagram: 11/16/16 1125 11/16/16 1125 Imaging Last [address] 11/16/16 1112 Signed Impressions: Service Date/Time: Wednesday, November 16, 2016 11:28 - CONCLUSION: Deterioration in appearance of scan as described above. Contrast MRI is pending. Ronaldo Franco MD FACR Attending Statement neuro checks in a serial fashion. A follow-up MRI of the brain will be obtained in 24 hours. Decadron 6 mg IV every 6 hrs Pulmonary. aggressive pulmonary toilette, nasotracheal suction, and breathing treatments with nebulizers. Nutrition. Oral diet Renal. monitor closely urine output, BUN and creatinine Spencer in place. Monitor intake and output. Monitor electrolytes and replace as indicated per ICU electrolyte replacement protocol. ENDO:Acute hyperglycemia secondary to trauma. Monitor bedside glucose and initiate low-dose insulin sliding scale as indicated for glucose greater than 180 central venous line A-line insertion for hemodynamic monitoring Protonix for stress ulcer prophylaxis Tim lee and SCD's for DVT prophylaxis. Duncan Woodall MD Nov 16, 2016 17:43
[2016-11-16] MEDS: DEXAMETHASONE SOD PHOS 4 MG/ML VIAL IV PUSH SCH (19:10)
[2016-11-16] MEDS: OXcarbazepine 300 MG TAB PO SCH (20:38)
[2016-11-16] MEDS: DOCUSATE SODIUM 50 MG/SENNA 8.6 MG TAB PO SCH (20:39)
[2016-11-16] MEDS ORDERED: VILAZODONE 20 MG PO SCH (21:00)
[2016-11-17] VITALS (9 sets, daily range): BP systolic 117–164; BP diastolic 75–100; PULSE 70–96; RESP 10–20; TEMP 97.6–98.3; O2SAT 91–98
[2016-11-17] MEDS: DEXAMETHASONE SOD PHOS 4 MG/ML VIAL IV PUSH SCH ×5 (00:36→23:31)
[2016-11-17] MEDS: CHLORHEXIDINE GLUCONATE 2 % 1 PACK (2 CLOTHS) TOP SCH (04:00)
[2016-11-17] MEDS: DOCUSATE SODIUM 50 MG/SENNA 8.6 MG TAB PO SCH ×2 (08:01→20:32)
[2016-11-17] MEDS: PANTOPRAZOLE SOD 40 MG DELAYED RELEASE TAB PO SCH (08:01)
[2016-11-17] MEDS: OXcarbazepine 300 MG TAB PO SCH ×2 (08:20→20:32)
[2016-11-17] MEDS: ACETAMINOPHEN 325 MG TAB PO PRN ×2 (08:35→14:06)
--- NOTE | 2016-11-17 09:06 | HHI.CCPN ---
Subjective Remarks/Hospital Course 61 y/o man s/p resection of left hemispheric glioblastoma presents with neurological symptoms and CT evidence of mass effect from tumor recurrence left parietal region. Received decadron in [facility] ED and now transferred to [facility]. 11/17: MRI reveals recurrent glioblastoma involving left hemisphere with speech and gi technician difficulties. Improved modestly with increased Decadron dosing. Neurosurgery to see. Objective Vital Signs Date Time Temp Pulse Resp B/P (MAP) Pulse Ox O2 Delivery O2 Flow Rate FiO2 11/17/16 08:00 98.1 70 20 125/79 (94) 98 11/17/16 07:00 Room Air 11/16/16 19:20 21 Intake and Output 11/17/16 11/17/16 11/18/16 08:00 16:00 00:00 Intake Total 173 ml Output Total 850 ml Balance -677 ml Result Diagram: 11/16/16 1125 11/16/16 1125 Objective Remarks GENERAL: Anxious male. HEAD: Atraumatic. Normocephalic. EYES: Pupils equal and round. NECK: Trachea midline. Airway widely patent. CARDIOVASCULAR: Regular rate and rhythm. No murmur appreciated. No JVD. RESPIRATORY: No accessory muscle use. Clear to auscultation. Breath sounds equal bilaterally. GASTROINTESTINAL: Abdomen soft, non-tender, nondistended. No guarding. MUSCULOSKELETAL: No obvious deformities. No clubbing. No cyanosis. No edema. Well perfused. NEUROLOGICAL: Awake and alert. Oriented 3. 5 out of 5 strength in all 4 extremities. Patient is having difficulty finding words. Tracks with eyes. A/P Assessment and Plan Assessment: 1. Glioblastoma left hemisphere. Plan: 1. Decadron. 2. Minimal iv fluid. 3. Mannitol prn. 4. protonix. 5. SCDs. 6. Tylenol for headache. Overall impression: Recurrent malignancy left hemisphere with symptoms involving speech, gi technician. Critical cerebral edema requiring immediate increased decadron therapy increase and possibly mannitol if he becomes more lethargic. Neurosurgery to review. Dmitry Mims MD Nov 17, 2016 09:06
[2016-11-17] MEDS: MORPHINE SULFATE 4 MG/ML INJ IV PUSH PRN ×4 (11:19→23:29)
--- NOTE | 2016-11-17 12:43 | HHI.NSPN ---
(Haylee Dudley) Note Status Status: Progress Note (Haylee Dudley) Interval History Interval History Mr. Car is a 61 y/o male with history of glioblastoma multiforme. He had undergone a left temporal lobe resection of glioblastoma multiforme with Dr. Stevens on 02/21/15. He has completed chemoradiation therapy. He presented to [facility] ED due to increasing aphasia over the past 3-4 days. MRI Brain completed shows recurrent tumor with vasogenic edema. He has been started on Decadron. Currently awake, alert, appears comfortable but with dysphasia. (Haylee Dudley) Labs, Micro, & Vital Signs Results Date Time Temp Pulse Resp B/P (MAP) Pulse Ox O2 Delivery O2 Flow Rate FiO2 11/17/16 12:02 98.0 96 20 164/100 (121) 97 11/17/16 08:00 98.1 70 20 125/79 (94) 98 11/17/16 08:00 70 11/17/16 07:00 97 Room Air 11/17/16 06:00 94 11/17/16 04:00 80 11/17/16 04:00 97.7 80 10 117/75 (89) 95 11/17/16 02:00 74 11/17/16 00:00 97.7 74 11 131/76 (94) 91 11/17/16 00:00 74 11/16/16 21:17 14 11/16/16 21:14 72 14 112/74 (87) 99 11/16/16 20:10 98.2 75 14 119/83 (95) 96 11/16/16 19:20 96 21 11/16/16 18:55 178 16 108/75 (86) 94 Room Air 11/16/16 17:55 80 16 101/73 (82) 96 Room Air 11/16/16 16:55 82 16 125/77 (93) 95 Room Air 11/16/16 16:30 80 16 95 Room Air 11/16/16 15:55 78 16 108/76 (87) 94 Room Air 11/16/16 14:57 16 11/16/16 14:54 80 16 126/83 (97) 96 Room Air 11/16/16 13:40 77 16 142/85 (104) 96 Room Air 11/16/16 12:51 79 16 124/83 (97) 96 Constitutional Vital Signs Date Time Temp Pulse Resp B/P (MAP) Pulse Ox O2 Delivery O2 Flow Rate FiO2 11/17/16 12:02 98.0 96 20 164/100 (121) 97 11/17/16 08:00 98.1 70 20 125/79 (94) 98 11/17/16 08:00 70 11/17/16 07:00 97 Room Air 11/17/16 06:00 94 11/17/16 04:00 80 11/17/16 04:00 97.7 80 10 117/75 (89) 95 11/17/16 02:00 74 11/17/16 00:00 97.7 74 11 131/76 (94) 91 11/17/16 00:00 74 11/16/16 21:17 14 11/16/16 21:14 72 14 112/74 (87) 99 11/16/16 20:10 98.2 75 14 119/83 (95) 96 11/16/16 19:20 96 21 11/16/16 18:55 178 16 108/75 (86) 94 Room Air 11/16/16 17:55 80 16 101/73 (82) 96 Room Air 11/16/16 16:55 82 16 125/77 (93) 95 Room Air 11/16/16 16:30 80 16 95 Room Air 11/16/16 15:55 78 16 108/76 (87) 94 Room Air 11/16/16 14:57 16 11/16/16 14:54 80 16 126/83 (97) 96 Room Air 11/16/16 13:40 77 16 142/85 (104) 96 Room Air 11/16/16 12:51 79 16 124/83 (97) 96 (Haylee Dudley) Review of Systems ROS Limitations: Clinical Condition, Poor Historian (Haylee Dudley) Physical Exam Mr. Car is alert, confused, oriented to self only. Attempts to converse but dysphasic. Cranial nerve examination: pupils equal, round, and reactive to light. Extra- ocular movements are grossly intact. Facial motor function appears normal and symmetrical. Neck is soft and supple. Motor: moving all four extremities Deep tendon reflexes are 1+ bilaterally. There is a bilateral plantar flexion response. Cerebellar examination is limited due to the patient condition (Haylee Dudley) Mr. Car is alert, confused, oriented to self only. Attempts to converse but dysphasic. Cranial nerve examination: pupils equal, round, and reactive to light. Extra- ocular movements are grossly intact. Facial motor function appears normal and symmetrical. Neck is soft and supple. Motor: moving all four extremities Deep tendon reflexes are 1+ bilaterally. There is a bilateral plantar flexion response. Cerebellar examination is limited due to the patient condition (Duncan Woodall MD) Medications Current Medications Current Medications Medications (Trade) Dose Ordered Sig/Ne Route PRN Reason Start Time Stop Time Status Last Admin Dose Admin IV Flush (NS Flush) 2 ml UNSCH PRN IV FLUSH FLUSH AFTER USING IV ACCESS 11/16/16 11:15 Sodium Chloride 1,000 ml @ 20 mls/hr Q24H IV 11/16/16 13:04 11/16/16 15:06 Acetaminophen (Tylenol) 650 mg Q6H PRN PO PAIN 1-10 AND/OR FEVER >101F 11/16/16 13:15 11/17/16 08:35 Morphine Sulfate (Morphine Inj) 2 mg Q2H PRN IV PUSH PAIN SCALE 6 TO 10 11/16/16 13:15 11/17/16 11:19 Pantoprazole Sodium (Protonix) 40 mg DAILY PO 11/17/16 09:00 11/17/16 08:01 Ondansetron HCl (Zofran Inj) 4 mg Q6H PRN IV PUSH NAUSEA OR VOMITING 11/16/16 13:15 Miscellaneous Information 1 Q361D XX 11/16/16 13:15 Chlorhexidine Gluconate (Chlorhexidine 2% Cloth) 3 pack Taper DAILY@04 TOP 11/17/16 04:00 11/13/17 03:59 Chlorhexidine Gluconate (Chlorhexidine 2% Cloth) 3 pack UNSCH PRN TOP HYGIENIC CARE 11/16/16 13:15 Senna/Docusate Sodium (Irene-Colace) 1 tab BID PO 11/16/16 21:00 11/17/16 08:01 Magnesium Hydroxide (Milk Of Magnesia Liq) 30 ml Q12H PRN PO MILD - MODERATE CONSTIPATION 11/16/16 13:15 Sennosides (Senokot) 17.2 mg Q12H PRN PO MODERATE - SEVERE CONSTIPATION 11/16/16 13:15 Bisacodyl (Dulcolax Supp) 10 mg DAILY PRN RECTAL SEVERE CONSITIPATION 11/16/16 13:15 Lactulose (Lactulose Liq) 30 ml DAILY PRN PO SEVERE CONSITIPATION 11/16/16 13:15 Alprazolam (Xanax) 1 mg Q8H PRN PO ANXIETY 11/16/16 13:15 Oxcarbazepine (Trileptal) 300 mg BID PO 11/16/16 21:00 11/17/16 08:20 Patient Own Medication PT OWN MED: VILAZOD... HS PO 11/16/16 21:00 Future Hold Dexamethasone Sodium Phosphate (Decadron Inj) 6 mg Q6HR IV PUSH 11/16/16 18:00 11/17/16 06:03 (Haylee Dudley) Medical Decision Making MDM Remarks 61 y/o male with high grade glioma, s/p resection by Dr. Stevens and previous chemoradiation tx, with recurrent tumor and vasogenic edema on MRI 11/16/16 Aphasia (Haylee Dudley) Plan Plan Remarks cont Decadron Protonix for GI prophylaxis start PT, OT, ST cont serial neuro checks Dr. Woodall defers further surgical plans to Dr. Stevens upon his return this will follow, (Haylee Dudley) Attending Statement As above Slowly responding to steroids. Discussed with his family Discussed with Dr Jackson The exam, history, and the medical decision-making described in the above note were completed with the assistance of the mid-level provider. I reviewed and agree with the findings presented. I attest that I had a [id number] encounter with the patient on the same day, and personally performed and documented my assessment and findings in the medical record. (Duncan Woodall MD) Haylee Dudley Nov 17, 2016 12:43 Duncan Woodall MD Nov 18, 2016 13:06
[2016-11-17] MEDS: SODIUM CHLOR 0.9% 1000 ML INJ 1,000 ML IV SCH (13:54)
--- NOTE | 2016-11-17 20:27 | MB ---
cc: ARMINDA CORDOBA M.D. DATE OF CONSULTATION 11/17/[address] Woodall. REASON FOR CONSULTATION Oncology consulted to render opinion regarding patient with recurrent glioblastoma. HISTORY OF PRESENT ILLNESS The patient is very pleasant 61-year-old male first diagnosed with glioblastoma in 2011. He had a resection followed by radiation and Temodar completed in September of 2011. He was on maintenance Temodar for one year. In February of 2015 he developed progression of disease and had a re-excision which showed anaplastic glioma. He received stereotactic radiation therapy in 2015. After that he was on Temodar for about 10 months and then switched to Avastin for several months which he completed earlier this year. He was doing well but about a month ago he started having aphasia. He also had left-sided headache. He was evaluated by his neurologist. The symptoms at first was thought due to his anti seizure medications. His primary oncologist Dr. Muller also increased the Decadron from 1 mg twice a day to 2 mg twice a day. However, the patient's symptoms are progressively getting worse. He came to the emergency room and MRI showed significant vasogenic edema on the left side of the brain. He was started on Decadron. He states that he is feeling a little better. Today his speech has improved. His headache also has improved. Denies any visual changes. Denies any chest pain, palpitation, any shortness of breath, cough, any nausea or vomiting. Denies any abdominal pain. PAST MEDICAL HISTORY 1. Glioblastoma. 2. Osteoarthritis. 3. Depression. 4. Hypothyroidism. 5. Seizure. PAST SURGICAL HISTORY 1. Resection of brain tumor twice. 2. Port placement. 3. Hernia repair. FAMILY HISTORY Noncontributory. SOCIAL HISTORY Quit tobacco. Drinks rarely. ALLERGIES PHENYTOIN, KEPPRA, LACOSAMIDE, ELETRIPTAN, CORN SYRUP. MEDICATIONS Current medications: 1. Protonix. 2. Decadron. 3. Irene-Colace. 4. Trileptal. REVIEW OF SYSTEMS CONSTITUTIONAL: Negative. EYES: Negative. ENT: Negative. CARDIOVASCULAR: Negative. RESPIRATORY: Negative. GASTROINTESTINAL: Denies nausea, vomiting, diarrhea or abdominal pain. GENITOURINARY: No dysuria, hematuria. MUSCULOSKELETAL: Negative. HEMATOLOGIC: Negative. ENDOCRINE: Negative. DERMATOLOGIC: Negative. PSYCHIATRIC: Negative. NEUROLOGIC: As above. PHYSICAL EXAMINATION VITAL SIGNS: Temperature 97.6, blood pressure 130/77, O2 saturation 96% room air. GENERAL: He is alert and oriented times three in no acute distress. HEENT: Atraumatic, normocephalic. Pupils equal, round and reactive to light. Extraocular muscles intact. No scleral icterus. Oropharynx dry mucosa. No lesion. NECK: No thyromegaly. No palpable mass. LYMPHATICS: No palpable cervical, clavicular, axillary or inguinal lymph nodes. CARDIOVASCULAR: Regular S1-S2. No murmur. LUNGS: Clear to auscultation bilaterally without wheezing or rhonchi. ABDOMEN: Soft, nontender. I could not palpate liver or spleen. EXTREMITIES: No cyanosis. No clubbing. No edema. No calf tenderness. BACK: No paravertebral tenderness. SKIN: No rash or petechiae. NEUROLOGIC: He has aphasia but no other focal deficits. LABORATORY DATA Reviewed. ASSESSMENT 1. Recurrent glioblastoma. He was first diagnosed with glioblastoma in 2011. He had a resection followed by concurrent radiation with Temodar in September 2011. He was then on Temodar for one year. In February of 2015 he developed progression of disease. He had a reexcision in February of 2015. Pathology showed recurrent glioblastoma. He then received stereotactic radiation. He was on Temodar for 10 months and Avastin for 2-3 months after that. He now represented with aphasia and mental status change. MRI showed significant vasogenic edema extending from the right temporal lobe into the right parietal occipital region. There is also a separate small focus of edema in the orbital frontal region. In August of this year he had a MRI with perfusion which did not show any evidence of recurrent disease. He was started on Decadron and his aphasia has improved. I had an extensive discussion with the patient, his and the family regarding the radiologic finding. I told them that he appeared to have recurrent brain tumor again. We will need neurosurgery's opinion to see if patient is still a surgical candidate for resection. We will also need radiation oncologist opinion to see if there is any more room for further radiation. If the patient is not a candidate for surgical resection or radiation then he will need treatment with Avastin. The patient and family had some questions today which were answered. 2. Hypogonadism. 3. Osteoarthritis. 4. Seizure disorder. RECOMMENDATIONS 1. Await neurosurgery and radiation oncology opinions to see if the patient is a candidate for further surgical resection or radiation, if not, he could receive Avastin. 2. Continue Decadron. Thank you Dr. Woodall, Dr. Reyes for asking me to see this patient. MD KATHRYN Mustafa/JAGJIT /6:09 PM /7:47 PM BASHIR
--- NOTE | 2016-11-17 22:55 | MB ---
cc: DENAE RUSH M.D. DATE OF CONSULTATION 11/17/16 REASON FOR CONSULTATION Tumor HISTORY OF PRESENT ILLNESS Mr. Car is a very nice 61-year-old man who has previous history of left hemisphere glioblastoma multiforme diagnosed in 2011 initially treated with resection followed by Temodar and radiation therapy which was completed in September of 2011. He continued Temodar for a year. He developed progressive disease in 2016 in February and had a repeat excision and that showed anaplastic glioma. He received stereotactic radiation therapy in 2016 and continued Temodar for 10 months and then switched to Avastin for several months. He has also been on Trileptal for focal seizures and has been stable until about three weeks ago. He started developing difficulty with his speech. This progressed and he came to the ER yesterday and MRI showed significant vasogenic edema left side of the brain consistent with recurrent tumor. He has been started on Decadron with improvement in his speech. He has had no recurrent seizures. PERSONAL HISTORY 1. History of glioblastoma 2. Osteoarthritis 3. Depression, 4. Hypothyroidism 5. Seizures 6. Resection of brain tumor in the past. MEDICATIONS Current are 1. Protonix 40 mg IV daily. 2. Irene-Colace. 3. Trileptal 300 mg b.i.d. 4. Decadron 6 mg q.6 h. 5. Tylenol p.r.n. 6. Morphine p.r.n. 7. Zofran p.r.n. 8. Senokot p.r.n. 9. Xanax p.r.n. 10. Lactulose p.r.n. NEUROLOGIC EXAMINATION His blood pressure is 125/79, pulse is 70, respiratory rate is 20, temperature 98 degrees. Higher cortical function - he is alert. Speech is non-fluent. He has difficulty following commands and repeating. Cranial nerves intact. Motor exam no focal weakness. Reflexes are symmetric. IMAGING STUDIES Reviewed the MRI of the brain which was done yesterday. There is a large area of vasogenic edema in the left parieto-occipital area consistent with recurrent increasing size of tumor. LABORATORY DATA White count is 9100, hemoglobin 15.5, hematocrit 46.9% platelet count 171,000, PT 10, INR 0.9, APTT 25. Sodium is 138, potassium 3.7, chloride 104, CO2 28.3, BUN is 14, creatinine 0.89, GFR is 87, glucose 126, AST 10, ALT 33. Urinalysis is normal. IMPRESSION 1. Recurrent left hemisphere tumor. 2. Secondary seizures which are stable on current dose of Trileptal. MD RAMYA Sauceda/ /10:10 PM /10:43 PM
[2016-11-18] VITALS (8 sets, daily range): BP systolic 131–153; BP diastolic 74–90; PULSE 75–83; RESP 16–20; TEMP 97.3–98.2; O2SAT 92–98
[2016-11-18] MEDS: CHLORHEXIDINE GLUCONATE 2 % 1 PACK (2 CLOTHS) TOP SCH (04:00)
[2016-11-18] MEDS: DEXAMETHASONE SOD PHOS 4 MG/ML VIAL IV PUSH SCH ×3 (05:49→18:13)
[2016-11-18] MEDS: PANTOPRAZOLE SOD 40 MG DELAYED RELEASE TAB PO SCH (09:59)
[2016-11-18] MEDS: OXcarbazepine 300 MG TAB PO SCH ×2 (09:59→20:36)
[2016-11-18] MEDS: DOCUSATE SODIUM 50 MG/SENNA 8.6 MG TAB PO SCH ×2 (10:00→20:36)
[2016-11-18] MEDS: MORPHINE SULFATE 4 MG/ML INJ IV PUSH PRN ×4 (10:10→20:37)
--- NOTE | 2016-11-18 10:54 | HHI.PR ---
Subjective Remarks in no acute distress. complaining of on and off headache. no nausea/vomiting. no seizures. Objective Vitals Vital Signs Date Time Temp Pulse Resp B/P (MAP) Pulse Ox O2 Delivery O2 Flow Rate FiO2 11/18/16 10:35 Room Air 11/18/16 08:00 98.2 79 16 135/87 (103) 98 11/18/16 04:00 97.8 82 20 131/74 (93) 94 11/18/16 00:00 97.9 83 20 141/90 (107) 92 11/17/16 22:36 96 11/17/16 22:31 Room Air 11/17/16 20:00 98.3 83 20 138/81 (100) 94 11/17/16 16:01 97.6 88 20 131/77 (95) 96 11/17/16 12:02 98.0 96 20 164/100 (121) 97 I/O 11/17/16 11/17/16 11/17/16 11/18/16 11/18/16 11/18/16 06:59 14:59 22:59 06:59 14:59 22:59 Intake Total 173 ml Output Total 850 ml 320 ml 325 ml Balance -677 ml -320 ml -325 ml Intake IV Total 173 ml Output Urine Total 850 ml 320 ml 325 ml Result Diagram: 11/16/16 1125 11/16/16 1125 Imaging Last Impressions Head CT 11/16/16 1112 Signed Impressions: Service Date/Time: Wednesday, November 16, 2016 11:28 - CONCLUSION: Deterioration in appearance of scan as described above. Contrast MRI is pending. Ronaldo Franco MD FACR Brain MRI 11/16/16 0000 Signed Impressions: Service Date/Time: Wednesday, November 16, 2016 14:29 - CONCLUSION: 1. Findings would be consistent with recurrent tumor and increasing vasogenic edema that now involves the left parietal occipital region. 2. I do not have any interval MRIs. Ronaldo Franco MD FACR Objective Remarks GENERAL: This is a well-nourished, well-developed patient, in no apparent distress. CARDIOVASCULAR: Regular rate and regular rhythm without murmurs, gallops, or rubs. RESPIRATORY: Clear to auscultation. Breath sounds equal bilaterally. No wheezes , rales, or rhonchi. GASTROINTESTINAL: Abdomen soft, non-tender, nondistended. Normal, active bowel sounds MUSCULOSKELETAL: Extremities without clubbing, cyanosis, or edema. NEURO: Alert & Oriented x4 to person, place, time, situation. Moves all ext x4 Medications and IVs Current Medications IV Flush (NS Flush) 2 ml UNSCH PRN IV FLUSH FLUSH AFTER USING IV ACCESS; Start 11/16/16 at 11:15 Dexamethasone Sodium Phosphate (Decadron Inj) 10 mg ONCE ONCE IV PUSH Last administered on 11/16/16 11:52; Start 11/16/16 at 11:45; Stop 11/16/16 at 11:48 ; Status DC Alprazolam (Xanax) 1 mg ONCE ONCE PO ; Start 11/16/16 at 13:00; Stop 11/16/16 at 13:16; Status DC Sodium Chloride 1,000 ml @ 20 mls/hr Q24H IV Last administered on 11/17/16 13:54; Start 11/16/16 at 13:04 Acetaminophen (Tylenol) 650 mg Q6H PRN PO PAIN 1-10 AND/OR FEVER >101F Last administered on 11/17/16 14:06; Start 11/16/16 at 13:15 Morphine Sulfate (Morphine Inj) 2 mg Q2H PRN IV PUSH PAIN SCALE 6 TO 10 Last administered on 11/18/16 10:10; Start 11/16/16 at 13:15 Pantoprazole Sodium (Protonix) 40 mg DAILY PO Last administered on 11/18/16 09:59; Start 11/17/16 at 09:00 Ondansetron HCl (Zofran Inj) 4 mg Q6H PRN IV PUSH NAUSEA OR VOMITING; Start at 13:15 Miscellaneous Information 1 Q361D XX ; Start 11/16/16 at 13:15 Chlorhexidine Gluconate (Chlorhexidine 2% Cloth) 3 pack Taper DAILY@04 TOP ; Start 11/17/16 at 04:00; Stop 11/13/17 at 03:59 Chlorhexidine Gluconate (Chlorhexidine 2% Cloth) 3 pack UNSCH PRN TOP HYGIENIC CARE; Start 11/16/16 at 13:15 Senna/Docusate Sodium (Irene-Colace) 1 tab BID PO Last administered on 10:00; Start 11/16/16 at 21:00 Magnesium Hydroxide (Milk Of Magnesia Liq) 30 ml Q12H PRN PO MILD - MODERATE CONSTIPATION Last administered on 11/17/16 20:45; Start 11/16/16 at 13:15 Sennosides (Senokot) 17.2 mg Q12H PRN PO MODERATE - SEVERE CONSTIPATION; Start 11/16/16 at 13:15 Bisacodyl (Dulcolax Supp) 10 mg DAILY PRN RECTAL SEVERE CONSITIPATION; Start 11/16/16 at 13:15 Lactulose (Lactulose Liq) 30 ml DAILY PRN PO SEVERE CONSITIPATION Last administered on 11/18/16 10:10; Start 11/16/16 at 13:15 Alprazolam (Xanax) 1 mg Q8H PRN PO ANXIETY; Start 11/16/16 at 13:15 Oxcarbazepine (Trileptal) 300 mg BID PO Last administered on 11/18/16 09:59; Start 11/16/16 at 21:00 Patient Own Medication PT OWN MED: VILAZOD... HS PO ; Start 11/16/16 at 21:00; Status Future Hold Dexamethasone Sodium Phosphate (Decadron Inj) 6 mg Q6HR IV PUSH Last administered on 11/18/16 05:49; Start 11/16/16 at 18:00 Alprazolam (Xanax) 1 mg ONCE ONCE PO Last administered on 11/16/16 13:37; Start 11/16/16 at 13:15; Stop 11/16/16 at 13:16; Status DC Gadodiamide (Omniscan Pf Inj) 18 ml STK-MED ONCE IVCONTRAST Last administered on 11/16/16 14:46; Start 11/16/16 at 14:46; Stop 11/16/16 at 14:47; Status DC A/P Assessment and Plan A/P - glioblastoma- s/p resection continue with Decadron and Trileptal. continue with PT neurology,neurosurgery and oncology following. -DVT prophylaxis with SCD's. Gary Sood MD Nov 18, 2016 10:54
--- NOTE | 2016-11-18 12:40 | PD.ONC.PN ---
Subjective Subjective Remarks Afebrile Reports his headache is about the same Aphasia is improved Waiting to speak to radiation oncology Objective Data Date Time Temp Pulse Resp B/P (MAP) Pulse Ox O2 Delivery O2 Flow Rate FiO2 11/18/16 11:35 78 11/18/16 10:35 Room Air 11/18/16 08:00 98.2 79 16 135/87 (103) 98 11/18/16 04:00 97.8 82 20 131/74 (93) 94 11/18/16 00:00 97.9 83 20 141/90 (107) 92 11/17/16 22:36 96 11/17/16 22:31 Room Air 11/17/16 20:00 98.3 83 20 138/81 (100) 94 11/17/16 16:01 97.6 88 20 131/77 (95) 96 11/18/16 11/18/16 11/18/16 06:59 14:59 22:59 Output Total 325 ml Balance -325 ml Result Diagram: 11/16/16 1125 11/16/16 1125 Administered Medications Medications (Trade) Dose Ordered Sig/Ne Route PRN Reason Start Time Stop Time Status Last Admin Dose Admin Sodium Chloride 1,000 ml @ 20 mls/hr Q24H IV 11/16/16 13:04 11/17/16 13:54 Acetaminophen (Tylenol) 650 mg Q6H PRN PO PAIN 1-10 AND/OR FEVER >101F 11/16/16 13:15 11/17/16 14:06 Morphine Sulfate (Morphine Inj) 2 mg Q2H PRN IV PUSH PAIN SCALE 6 TO 10 11/16/16 13:15 11/18/16 10:10 Pantoprazole Sodium (Protonix) 40 mg DAILY PO 11/17/16 09:00 11/18/16 09:59 Senna/Docusate Sodium (Irene-Colace) 1 tab BID PO 11/16/16 21:00 11/18/16 10:00 Magnesium Hydroxide (Milk Of Magnesia Liq) 30 ml Q12H PRN PO MILD - MODERATE CONSTIPATION 11/16/16 13:15 11/17/16 20:45 Lactulose (Lactulose Liq) 30 ml DAILY PRN PO SEVERE CONSITIPATION 11/16/16 13:15 11/18/16 10:10 Oxcarbazepine (Trileptal) 300 mg BID PO 11/16/16 21:00 11/18/16 09:59 Dexamethasone Sodium Phosphate (Decadron Inj) 6 mg Q6HR IV PUSH 11/16/16 18:00 11/18/16 05:49 Objective Remarks GENERAL: Older male asleep in bed on approach in no acute distress SKIN: Warm and dry. HEAD: Normocephalic. EYES: No injection or drainage. NECK: Supple, trachea midline. CARDIOVASCULAR: Regular rate and rhythm without murmurs. RESPIRATORY: Clear anteriorly. Breathing unlabored. GASTROINTESTINAL: Abdomen soft, non-tender, nondistended. EXTREMITIES: No cyanosis, or edema. NEUROLOGICAL: Normal speech. Moving all extremities. Assessment/Plan Problem List: (1) Glioblastoma multiforme of temporal lobe ICD Codes: C71.2 - Malignant neoplasm of temporal lobe Status: Acute Plan: -- Await input from neurosurgery, radiation XRT -- On decadron Hx/Workup: Patient was first diagnosed with glioblastoma in 2011. At that time he had a resection followed by radiation and Temodar. He was on maintenance Temodar for 1 year. He had progression of disease in February 2015 and had a reexcision which showed anaplastic glioma. He received stereotactic radiation therapy. He was placed on Temodar for approximately 10 months then switched back to Avastin which he completed earlier this year. Unfortunately he began to have aphasia and left-sided headache approximately 4 weeks ago. He was progressively more symptomatic and came to the emergency room where an MRI showed significant vasogenic edema on the left side of the brain Assessment 61-year-old male with history of glioblastoma admitted with aphasia and headache found to have recurrent tumor and significant vasogenic edema Plan 1. Await neurosurgery and radiation oncology input 2. If the patient is not a candidate for either of these then we will treat him with Avastin. 3. Continue Decadron 4. Supportive care Attending Statement The exam, history, and the medical decision-making described in the above note were completed with the assistance of the mid-level provider. I reviewed and agree with the findings presented. I attest that I had a [id number] encounter with the patient on the same day, and personally performed and documented my assessment and findings in the medical record. Continue to improved. No headache. Await neurosurgery and radiation oncology recommendation. If he is not a candidate for local therapy, then he can treated with Avastin. Lesly Novak Nov 18, 2016 12:40 Michael Valdez MD Nov 18, 2016 15:32
[2016-11-18] MEDS: SODIUM CHLOR 0.9% 1000 ML INJ 1,000 ML IV SCH (13:06)
--- NOTE | 2016-11-18 13:46 | HHI.NSPN ---
Note Status Status: Progress Note Interval History Interval History Mr. Car is a 61 y/o male with history of glioblastoma multiforme. He had undergone a left temporal lobe resection of glioblastoma multiforme with Dr. Stevens on 02/21/15. He has completed chemoradiation therapy. He presented to [place] ED due to increasing aphasia over the past 3-4 days. MRI Brain completed shows recurrent tumor with vasogenic edema. He has been started on Decadron. Currently awake, alert, appears comfortable but with dysphasia. 11/18: in room reports aphasia improving with Decadron. no new complaints overnight Labs, Micro, & Vital Signs Results Date Time Temp Pulse Resp B/P (MAP) Pulse Ox O2 Delivery O2 Flow Rate FiO2 11/18/16 12:00 98.0 77 16 133/75 (94) 96 11/18/16 11:35 78 11/18/16 10:35 Room Air 11/18/16 08:00 98.2 79 16 135/87 (103) 98 11/18/16 04:00 97.8 82 20 131/74 (93) 94 11/18/16 00:00 97.9 83 20 141/90 (107) 92 11/17/16 22:36 96 11/17/16 22:31 Room Air 11/17/16 20:00 98.3 83 20 138/81 (100) 94 11/17/16 16:01 97.6 88 20 131/77 (95) 96 Constitutional Vital Signs Date Time Temp Pulse Resp B/P (MAP) Pulse Ox O2 Delivery O2 Flow Rate FiO2 11/18/16 12:00 98.0 77 16 133/75 (94) 96 11/18/16 11:35 78 11/18/16 10:35 Room Air 11/18/16 08:00 98.2 79 16 135/87 (103) 98 11/18/16 04:00 97.8 82 20 131/74 (93) 94 11/18/16 00:00 97.9 83 20 141/90 (107) 92 11/17/16 22:36 96 11/17/16 22:31 Room Air 11/17/16 20:00 98.3 83 20 138/81 (100) 94 11/17/16 16:01 97.6 88 20 131/77 (95) 96 Physical Exam Mr. Car is alert, confused, oriented to self only. Attempts to converse but dysphasic. Cranial nerve examination: pupils equal, round, and reactive to light. Extra- ocular movements are grossly intact. Facial motor function appears normal and symmetrical. Neck is soft and supple. Motor: moving all four extremities Deep tendon reflexes are 1+ bilaterally. There is a bilateral plantar flexion response. Cerebellar examination is limited due to the patient condition Medications Current Medications Current Medications Medications (Trade) Dose Ordered Sig/Ne Route PRN Reason Start Time Stop Time Status Last Admin Dose Admin IV Flush (NS Flush) 2 ml UNSCH PRN IV FLUSH FLUSH AFTER USING IV ACCESS 11/16/16 11:15 Sodium Chloride 1,000 ml @ 20 mls/hr Q24H IV 11/16/16 13:04 11/17/16 13:54 Acetaminophen (Tylenol) 650 mg Q6H PRN PO PAIN 1-10 AND/OR FEVER >101F 11/16/16 13:15 11/17/16 14:06 Morphine Sulfate (Morphine Inj) 2 mg Q2H PRN IV PUSH PAIN SCALE 6 TO 10 11/16/16 13:15 11/18/16 13:08 Pantoprazole Sodium (Protonix) 40 mg DAILY PO 11/17/16 09:00 11/18/16 09:59 Ondansetron HCl (Zofran Inj) 4 mg Q6H PRN IV PUSH NAUSEA OR VOMITING 11/16/16 13:15 Miscellaneous Information 1 Q361D XX 11/16/16 13:15 Chlorhexidine Gluconate (Chlorhexidine 2% Cloth) 3 pack Taper DAILY@04 TOP 11/17/16 04:00 11/13/17 03:59 Chlorhexidine Gluconate (Chlorhexidine 2% Cloth) 3 pack UNSCH PRN TOP HYGIENIC CARE 11/16/16 13:15 Senna/Docusate Sodium (Irene-Colace) 1 tab BID PO 11/16/16 21:00 11/18/16 10:00 Magnesium Hydroxide (Milk Of Magnesia Liq) 30 ml Q12H PRN PO MILD - MODERATE CONSTIPATION 11/16/16 13:15 11/17/16 20:45 Sennosides (Senokot) 17.2 mg Q12H PRN PO MODERATE - SEVERE CONSTIPATION 11/16/16 13:15 11/18/16 13:08 Bisacodyl (Dulcolax Supp) 10 mg DAILY PRN RECTAL SEVERE CONSITIPATION 11/16/16 13:15 Lactulose (Lactulose Liq) 30 ml DAILY PRN PO SEVERE CONSITIPATION 11/16/16 13:15 11/18/16 10:10 Alprazolam (Xanax) 1 mg Q8H PRN PO ANXIETY 11/16/16 13:15 Oxcarbazepine (Trileptal) 300 mg BID PO 11/16/16 21:00 11/18/16 09:59 Patient Own Medication PT OWN MED: VILAZOD... HS PO 11/16/16 21:00 Future Hold Dexamethasone Sodium Phosphate (Decadron Inj) 6 mg Q6HR IV PUSH 11/16/16 18:00 11/18/16 12:31 Medical Decision Making MDM Remarks 61 y/o male with high grade glioma, s/p resection by Dr. Stevens and previous chemoradiation tx, with recurrent tumor and vasogenic edema on MRI 11/16/16 Aphasia Plan Plan Remarks cont Decadron Protonix for GI prophylaxis start PT, OT, ST cont serial neuro checks Dr. Woodall defers further surgical plans to Dr. Stevens upon his return tomorrow, medical and radiation oncology consulted discussed with in room Haylee Dudley Nov 18, 2016 13:46
--- NOTE | 2016-11-18 17:08 | HHI.PR ---
Review/Management Diagnosis left hemisphere recurrent tumor. focal sz--stable on low dose trileptal Diagnosis/Plan: Subjective Subjective Comments No acute events reported No focal sz. speech doing better today Active Medications Current Medications Medications (Trade) Dose Ordered Sig/Ne Route Start Time Stop Time Status Last Admin (NS Flush) 2 ml UNSCH PRN IV FLUSH 11/16/16 11:15 Sodium Chloride 1,000 ml @ 20 mls/hr Q24H IV 11/16/16 13:04 11/17/16 13:54 (Tylenol) 650 mg Q6H PRN PO 11/16/16 13:15 11/17/16 14:06 (Morphine Inj) 2 mg Q2H PRN IV PUSH 11/16/16 13:15 11/18/16 13:08 (Protonix) 40 mg DAILY PO 11/17/16 09:00 11/18/16 09:59 (Zofran Inj) 4 mg Q6H PRN IV PUSH 11/16/16 13:15 Miscellaneous Information 1 Q361D XX 11/16/16 13:15 (Chlorhexidine 2% Cloth) 3 pack Taper DAILY@04 TOP 11/17/16 04:00 11/13/17 03:59 (Chlorhexidine 2% Cloth) 3 pack UNSCH PRN TOP 11/16/16 13:15 (Irene-Colace) 1 tab BID PO 11/16/16 21:00 11/18/16 10:00 (Milk Of Magnesia Liq) 30 ml Q12H PRN PO 11/16/16 13:15 11/17/16 20:45 (Senokot) 17.2 mg Q12H PRN PO 11/16/16 13:15 11/18/16 13:08 (Dulcolax Supp) 10 mg DAILY PRN RECTAL 11/16/16 13:15 (Lactulose Liq) 30 ml DAILY PRN PO 11/16/16 13:15 11/18/16 10:10 (Xanax) 1 mg Q8H PRN PO 11/16/16 13:15 (Trileptal) 300 mg BID PO 11/16/16 21:00 11/18/16 09:59 Patient Own Medication PT OWN MED: VILAZOD... HS PO 11/16/16 21:00 Future Hold (Decadron Inj) 6 mg Q6HR IV PUSH 11/16/16 18:00 11/18/16 12:31 Allergies Allergies Coded Allergies corn syrup (Unverified Allergy, Severe, MIGRAINE, FLU LIKE SYMPTOMS, 11/16/16) levetiracetam (Unverified Allergy, Severe, Rash, 11/16/16) eletriptan (Verified Allergy, Intermediate, SERATONIN SYNDROM, 11/16/16) lacosamide (Verified Allergy, Intermediate, INCREASED APHASIA, PSYCHOSIS, 11/16) phenytoin (Unverified Allergy, Unknown, 11/16/16) Exam I&O / VS Vital Signs Date Time Temp Pulse Resp B/P (MAP) Pulse Ox O2 Delivery O2 Flow Rate FiO2 11/18/16 12:00 98.0 77 16 133/75 (94) 96 11/18/16 11:35 78 11/18/16 10:35 Room Air 11/18/16 08:00 98.2 79 16 135/87 (103) 98 11/18/16 04:00 97.8 82 20 131/74 (93) 94 11/18/16 00:00 97.9 83 20 141/90 (107) 92 11/17/16 22:36 96 11/17/16 22:31 Room Air 11/17/16 20:00 98.3 83 20 138/81 (100) 94 Exam Comments alert, speech is more fluent today than it was yesterday. Still hesitant. follows commands well CN 2-12 normal MOTOR 5.5 Babar Garner PhD Nov 18, 2016 17:08
[2016-11-19] VITALS (8 sets, daily range): BP systolic 140–169; BP diastolic 82–99; PULSE 72–88; RESP 18–20; TEMP 97.6–98.4; O2SAT 92–96
[2016-11-19] MEDS: DEXAMETHASONE SOD PHOS 4 MG/ML VIAL IV PUSH SCH ×5 (01:12→23:25)
[2016-11-19] MEDS: MORPHINE SULFATE 4 MG/ML INJ IV PUSH PRN ×7 (01:14→23:25)
[2016-11-19] MEDS: CHLORHEXIDINE GLUCONATE 2 % 1 PACK (2 CLOTHS) TOP SCH (01:35)
[2016-11-19] MEDS: PANTOPRAZOLE SOD 40 MG DELAYED RELEASE TAB PO SCH (08:45)
[2016-11-19] MEDS: DOCUSATE SODIUM 50 MG/SENNA 8.6 MG TAB PO SCH ×2 (08:45→21:15)
[2016-11-19] MEDS: OXcarbazepine 300 MG TAB PO SCH ×2 (08:45→21:15)
--- NOTE | 2016-11-19 10:59 | RF ---
cc: VANNA WOODALL M.D., BRAD A. MD CHEW, BOON Y. M.D. F o l l o w u p R e p o r t DATE OF SERVICE: 11/18/2016 AGE: 61 SEX: M Mr. Car is a 61-year-old male with a history of recurrent glioblastoma multiforme. First treated initially in [address] King with 60 Gy total. Treatment was completed August 2011. Had recurrent disease and received 24 Gy, 8 Gy x [address] Wu in 2015. He now has MRI imaging consistent with disease progression. He underwent MRI of the brain 11/16/2016 demonstrating edema and findings consistent with recurrent tumor. We discussed we do not recommend additional radiotherapy at this time. I discussed this with Dr. Woodall as well. We discussed to follow up with Dr. Wu if he wishes, he declines this at this time. We discussed other treatment options. I will discuss this further with Dr. Valdez as well. He will be seeing Dr. Stevens his original neurosurgeon tomorrow. We will see him on an as-needed basis. Eliot Jackson MD Radiation Oncologist ERIC/OLVIN /4:53 PM /10:45 AM
--- NOTE | 2016-11-19 12:30 | HHI.NSPN ---
Note Status Status: Progress Note Interval History Interval History Mr. Car is a 61 y/o male with history of glioblastoma multiforme. He had undergone a left temporal lobe resection of glioblastoma multiforme with Dr. Stevens on 02/21/15. He has completed chemoradiation therapy. He presented to [facility] ED due to increasing aphasia over the past 3-4 days. MRI Brain completed shows recurrent tumor with vasogenic edema. He has been started on Decadron. Currently awake, alert, appears comfortable but with dysphasia. 11/18: in room reports aphasia improving with Decadron. no new complaints overnight 11/19: speech improving with steroids, no acute events overnight, family awaiting Dr. Stevens's return Labs, Micro, & Vital Signs Results Date Time Temp Pulse Resp B/P (MAP) Pulse Ox O2 Delivery O2 Flow Rate FiO2 11/19/16 12:00 98.0 72 19 143/82 (102) 96 11/19/16 10:15 92 21 11/19/16 08:00 98.2 88 19 169/99 (122) 95 11/19/16 04:00 97.6 79 20 140/91 (107) 96 11/19/16 00:00 98.4 82 20 145/90 (108) 96 11/18/16 23:30 75 11/18/16 23:11 Room Air 11/18/16 20:00 97.3 82 20 131/85 (100) 95 11/18/16 16:00 97.9 79 16 153/86 (108) 96 Constitutional Vital Signs Date Time Temp Pulse Resp B/P (MAP) Pulse Ox O2 Delivery O2 Flow Rate FiO2 11/19/16 12:00 98.0 72 19 143/82 (102) 96 11/19/16 10:15 92 21 11/19/16 08:00 98.2 88 19 169/99 (122) 95 11/19/16 04:00 97.6 79 20 140/91 (107) 96 11/19/16 00:00 98.4 82 20 145/90 (108) 96 11/18/16 23:30 75 11/18/16 23:11 Room Air 11/18/16 20:00 97.3 82 20 131/85 (100) 95 11/18/16 16:00 97.9 79 16 153/86 (108) 96 Physical Exam Mr. Car is alert. Aphasia better on steroids. Cranial nerve examination: pupils equal, round. Extra-ocular movements are grossly intact. Facial motor function appears normal and symmetrical. Neck is soft and supple. Motor: moving all four extremities Deep tendon reflexes are 1+ bilaterally. There is a bilateral plantar flexion response. Medications Current Medications Current Medications Medications (Trade) Dose Ordered Sig/Ne Route PRN Reason Start Time Stop Time Status Last Admin Dose Admin IV Flush (NS Flush) 2 ml UNSCH PRN IV FLUSH FLUSH AFTER USING IV ACCESS 11/16/16 11:15 Sodium Chloride 1,000 ml @ 20 mls/hr Q24H IV 11/16/16 13:04 11/17/16 13:54 Acetaminophen (Tylenol) 650 mg Q6H PRN PO PAIN 1-10 AND/OR FEVER >101F 11/16/16 13:15 11/17/16 14:06 Morphine Sulfate (Morphine Inj) 2 mg Q2H PRN IV PUSH PAIN SCALE 6 TO 10 11/16/16 13:15 11/19/16 11:16 Pantoprazole Sodium (Protonix) 40 mg DAILY PO 11/17/16 09:00 11/19/16 08:45 Ondansetron HCl (Zofran Inj) 4 mg Q6H PRN IV PUSH NAUSEA OR VOMITING 11/16/16 13:15 Miscellaneous Information 1 [id number] XX 11/16/16 13:15 Chlorhexidine Gluconate (Chlorhexidine 2% Cloth) 3 pack Taper DAILY@04 TOP 11/17/16 04:00 11/13/17 03:59 Chlorhexidine Gluconate (Chlorhexidine 2% Cloth) 3 pack UNSCH PRN TOP HYGIENIC CARE 11/16/16 13:15 Senna/Docusate Sodium (Irene-Colace) 1 tab BID PO 11/16/16 21:00 11/19/16 08:45 Magnesium Hydroxide (Milk Of Magnesia Liq) 30 ml Q12H PRN PO MILD - MODERATE CONSTIPATION 11/16/16 13:15 11/17/16 20:45 Sennosides (Senokot) 17.2 mg Q12H PRN PO MODERATE - SEVERE CONSTIPATION 11/16/16 13:15 11/18/16 13:08 Bisacodyl (Dulcolax Supp) 10 mg DAILY PRN RECTAL SEVERE CONSITIPATION 11/16/16 13:15 Lactulose (Lactulose Liq) 30 ml DAILY PRN PO SEVERE CONSITIPATION 11/16/16 13:15 11/18/16 10:10 Alprazolam (Xanax) 1 mg Q8H PRN PO ANXIETY 11/16/16 13:15 Oxcarbazepine (Trileptal) 300 mg BID PO 11/16/16 21:00 11/19/16 08:45 Patient Own Medication PT OWN MED: VILAZOD... HS PO 11/16/16 21:00 Future Hold Dexamethasone Sodium Phosphate (Decadron Inj) 6 mg Q6HR IV PUSH 11/16/16 18:00 11/19/16 11:16 Medical Decision Making MDM Remarks 61 y/o male with high grade glioma, s/p resection by Dr. Stevens and previous chemoradiation tx, with recurrent tumor and vasogenic edema on MRI 11/16/16 Aphasia, improved on Decadron Plan Plan Remarks cont Decadron Protonix for GI prophylaxis cont PT, OT, ST cont serial neuro checks medical and radiation oncology consulted Dr. Woodall defers further surgical plans to Dr. Hilda Stevens will be returning tomorrow Haylee Dudley Nov 19, 2016 12:29
[2016-11-19] MEDS: SODIUM CHLOR 0.9% 1000 ML INJ 1,000 ML IV SCH (12:45)
--- NOTE | 2016-11-19 14:13 | PD.ONC.PN ---
Subjective Subjective Remarks Less tired today Had headache earlier but took some morphine and it is now improved Still waiting to see Dr Stevens; they report he will not be back until tomorrow. Objective Data Date Time Temp Pulse Resp B/P (MAP) Pulse Ox O2 Delivery O2 Flow Rate FiO2 11/19/16 12:00 98.0 72 19 143/82 (102) 96 11/19/16 10:15 92 21 11/19/16 08:00 98.2 88 19 169/99 (122) 95 11/19/16 04:00 97.6 79 20 140/91 (107) 96 11/19/16 00:00 98.4 82 20 145/90 (108) 96 11/18/16 23:30 75 11/18/16 23:11 Room Air 11/18/16 20:00 97.3 82 20 131/85 (100) 95 11/18/16 16:00 97.9 79 16 153/86 (108) 96 Result Diagram: 11/16/16 1125 11/16/16 1125 Administered Medications Medications (Trade) Dose Ordered Sig/Ne Route PRN Reason Start Time Stop Time Status Last Admin Dose Admin Sodium Chloride 1,000 ml @ 20 mls/hr Q24H IV 11/16/16 13:04 11/17/16 13:54 Acetaminophen (Tylenol) 650 mg Q6H PRN PO PAIN 1-10 AND/OR FEVER >101F 11/16/16 13:15 11/17/16 14:06 Morphine Sulfate (Morphine Inj) 2 mg Q2H PRN IV PUSH PAIN SCALE 6 TO 10 11/16/16 13:15 11/19/16 11:16 Pantoprazole Sodium (Protonix) 40 mg DAILY PO 11/17/16 09:00 11/19/16 08:45 Senna/Docusate Sodium (Irene-Colace) 1 tab BID PO 11/16/16 21:00 11/19/16 08:45 Magnesium Hydroxide (Milk Of Magnesia Liq) 30 ml Q12H PRN PO MILD - MODERATE CONSTIPATION 11/16/16 13:15 11/17/16 20:45 Sennosides (Senokot) 17.2 mg Q12H PRN PO MODERATE - SEVERE CONSTIPATION 11/16/16 13:15 11/18/16 13:08 Lactulose (Lactulose Liq) 30 ml DAILY PRN PO SEVERE CONSITIPATION 11/16/16 13:15 11/18/16 10:10 Oxcarbazepine (Trileptal) 300 mg BID PO 11/16/16 21:00 11/19/16 08:45 Dexamethasone Sodium Phosphate (Decadron Inj) 6 mg Q6HR IV PUSH 11/16/16 18:00 11/19/16 11:16 Objective Remarks GENERAL: Older male asleep in bed on approach in no acute distress SKIN: Warm and dry. HEAD: Normocephalic. EYES: No injection or drainage. NECK: Supple, trachea midline. CARDIOVASCULAR: Regular rate and rhythm without murmurs. RESPIRATORY: Clear anteriorly. Breathing unlabored. GASTROINTESTINAL: Abdomen soft, non-tender, nondistended. EXTREMITIES: No cyanosis, or edema. NEUROLOGICAL: Normal speech. Moving all extremities. Assessment/Plan Problem List: (1) Glioblastoma multiforme of temporal lobe ICD Codes: C71.2 - Malignant neoplasm of temporal lobe Status: Acute Plan: -- Await input from Dr Stevens -- On decadron Hx/Workup: Patient was first diagnosed with glioblastoma in 2011. At that time he had a resection followed by radiation and Temodar. He was on maintenance Temodar for 1 year. He had progression of disease in February 2015 and had a reexcision which showed anaplastic glioma. He received stereotactic radiation therapy. He was placed on Temodar for approximately 10 months then switched back to Avastin which he completed earlier this year. Unfortunately he began to have aphasia and left-sided headache approximately 4 weeks ago. He was progressively more symptomatic and came to the emergency room where an MRI showed significant vasogenic edema on the left side of the brain Assessment 61-year-old male with history of glioblastoma admitted with aphasia and headache found to have recurrent tumor and significant vasogenic edema Plan 1. Per rad onc, he is not a candidate for further radiation 2. It is unlikely that he will be a candidate for surgical resection, however will wait for Dr Stevens input. 3. If surgery is not an option, we would recommend the pt followup with Dr Lovett in [facility] for Avastin. 4. Supportive care Attending Statement The exam, history, and the medical decision-making described in the above note were completed with the assistance of the mid-level provider. I reviewed and agree with the findings presented. I attest that I had a [id number] encounter with the patient on the same day, and personally performed and documented my assessment and findings in the medical record. No significant headache. Still has aphasia. Discussed with , no further XRT recommended at this time. Doubt he is a candidate for further surgical resection but he is awaiting input from . If he is not a surgical candidate, he can f/u with his primary oncologist for Avastin. Lesly Novak Nov 19, 2016 14:13 Michael Valdez MD Nov 19, 2016 15:04
--- NOTE | 2016-11-19 14:36 | HHI.PR ---
Subjective Remarks Patient sitting up in bed. Says he feels all right. Denies any chest pain or shortness breath. Denies any nausea or vomiting. Headache continues, but has not worsened. Objective Vital Signs Date Time Temp Pulse Resp B/P (MAP) Pulse Ox O2 Delivery O2 Flow Rate FiO2 11/19/16 12:00 98.0 72 19 143/82 (102) 96 11/19/16 10:15 92 21 11/19/16 08:00 98.2 88 19 169/99 (122) 95 11/19/16 04:00 97.6 79 20 140/91 (107) 96 11/19/16 00:00 98.4 82 20 145/90 (108) 96 11/18/16 23:30 75 11/18/16 23:11 Room Air 11/18/16 20:00 97.3 82 20 131/85 (100) 95 11/18/16 16:00 97.9 79 16 153/86 (108) 96 I/O 11/18/16 11/18/16 11/18/16 11/19/16 11/19/16 11/19/16 07:00 15:00 23:00 07:00 15:00 23:00 Intake Total 940 ml Output Total 325 ml Balance -325 ml 940 ml Intake Oral 940 ml Output Urine Total 325 ml # Voids 5 1 # Bowel Movements 2 Result Diagram: 11/16/16 1125 11/16/16 1125 Objective Remarks GENERAL: Patient sitting up in bed. Appears comfortable. He is alert and oriented 3. SKIN: Warm and dry. HEAD: Normocephalic. EYES: No scleral icterus. No injection or drainage. NECK: Supple, trachea midline. No JVD or lymphadenopathy. CARDIOVASCULAR: Regular rate and rhythm without murmurs, gallops, or rubs. RESPIRATORY: Breath sounds equal bilaterally. No accessory muscle use. GASTROINTESTINAL: Abdomen soft, non-tender, nondistended. MUSCULOSKELETAL: No cyanosis, or edema. BACK: Nontender without obvious deformity. No CVA tenderness. A/P Assessment and Plan ===11/19/16 //Elevated blood pressure. Up to 169/99. Possibly secondary to IV steroids. We'll add Vasotec IV when necessary. A/P //glioblastoma- s/p resection continue with Decadron and Trileptal. continue with PT neurology,neurosurgery and oncology following. - //DVT prophylaxis with SCD's. Discharge Planning As per neurosurgery. Trino Harrison MD Nov 19, 2016 14:36
[2016-11-19] MEDS ORDERED: ENALAPRILAT 1.25 MG/ML VIAL IV PUSH PRN (14:45)
[2016-11-20] VITALS: BP 146/92; PULSE 92; RESP 20; TEMP 97.3; O2SAT 94
[2016-11-20 04:00] VITALS: BP 134/84; PULSE 85; RESP 18; TEMP 97.5; O2SAT 94
[2016-11-20] MEDS: CHLORHEXIDINE GLUCONATE 2 % 1 PACK (2 CLOTHS) TOP SCH (04:04)
[2016-11-20] MEDS: DEXAMETHASONE SOD PHOS 4 MG/ML VIAL IV PUSH SCH (06:25)
[2016-11-20 08:00] VITALS: BP 137/79; PULSE 85; RESP 18; TEMP 97.4; O2SAT 96
[2016-11-20] MEDS: OXcarbazepine 300 MG TAB PO SCH (08:38)
[2016-11-20] MEDS: DOCUSATE SODIUM 50 MG/SENNA 8.6 MG TAB PO SCH (08:38)
[2016-11-20] MEDS: PANTOPRAZOLE SOD 40 MG DELAYED RELEASE TAB PO SCH (08:39)
[2016-11-20 09:31] LABS: AUTOMATED NEUTROPHIL # 9.3 TH/MM3 (1.8-7.7); BASOPHIL % 0.1 % (0.0-2.0); HEMATOCRIT 48.7 % (39.0-51.0); HEMO FLAGS DIFF FINAL; LYMPH % 9.3 % (9.0-44.0); LYMPHOCYTE # 1.1 TH/MM3 (1.0-4.8); MEAN CELL VOLUME 92.1 FL (80.0-100.0); MEAN CORPUSCULAR HEMOGLOBIN 30.5 PG (27.0-34.0); MEAN CORPUSCULAR HGB CONC 33.2 % (32.0-36.0); MONO % 9.4 % (0.0-8.0); NEUT % 81.2 % (16.0-70.0); PLATELET COUNT 173 TH/MM3 (150-450); RED BLOOD COUNT 5.29 MIL/MM3 (4.50-5.90); RED CELL DISTRIBUTION WIDTH 14.9 % (11.6-17.2); WHITE BLOOD COUNT 11.5 TH/MM3 (4.0-11.0)
--- NOTE | 2016-11-20 10:13 | HHI.NSPN ---
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 He's had adjuvant radiation and chemotherapy. Although past the several months his symptoms have progressed in particular over the last month with significant speech deficits and aphasia with confusion. With initiation of steroids during current hospitalization his speech has improved along with decreased headaches. He is now verbalizing and interacting and walking independently in the hallways. Unfortunately MRI scan the brain reveals significant progression of the disease involving the whole left temporal lobe with patchy enhancement. He is not a candidate for any further radiation therapy and further chemotherapy options are being entertained. Review of Systems General: Negative for: fever, chills, insomnia Respiratory: Negative for: shortness of breath, cough, sputum Cardiovascular: Negative for: chest pain, palpitations, orthopnea Gastrointestinal: Negative for: nausea, vomitting, diarrhea, constipation Genitourinary: Negative for: urinary burning, urinary frequency, urinary urgency Exam Results Vital Signs Date Time Temp Pulse Resp B/P (MAP) Pulse Ox O2 Delivery O2 Flow Rate FiO2 11/20/16 08:00 97.4 85 18 137/79 (98) 96 11/19/16 10:15 21 11/18/16 23:11 Room Air Intake and Output 11/20/16 11/20/16 11/21/16 08:00 16:00 00:00 Output Total 1 ml Balance -1 ml Physical Examination Mr. Car is alert. Aphasia better on steroids. Cranial nerve examination: pupils equal, round. Extra-ocular movements are grossly intact. Facial motor function appears normal and symmetrical. Neck is soft and supple. Motor: moving all four extremities Deep tendon reflexes are 1+ bilaterally. There is a bilateral plantar flexion response. Medical Decision Making Impression and Plan 61-year-old gentleman with a history of a left temporal lobe glioblastoma initially resected in 2012 with subsequent repeat resection in 2016 for recurrence and now with progressive disease involving the whole temporal lobe. Unfortunately he is not a candidate for any further surgical intervention and this was discussed at length with the patient and his and 2 children. They understand the gravity of the situation and he understands that this is likely a terminal standpoint and wants to have a good quality of life the short time he has left. He is overall very appreciative that he was able to have a good quality of life last the 5-6 years with a disease that has a very poor prognosis usually measured in a matter of months. I agree with Decadron since this is helping with his symptoms with a slow wean in the future and continued anticonvulsant therapy and when necessary Lortab for the headaches. He would like to explore further chemotherapy options although wants to follow-up with Dr. Valdez locally rather than his oncologist in [facility]. Patient is cleared for discharge from neurosurgical standpoint and will be seen on an as- needed basis. Edwin Stevens MD Nov 20, 2016 10:13
[2016-11-20 10:28] LABS: BICARBONATE 27.8 MEQ/L (21.0-32.0); MAGNESIUM 2.3 MG/DL (1.5-2.5); POTASSIUM 3.8 MEQ/L (3.5-5.1)
[2016-11-20] MEDS ORDERED: DEXA4TAB PO ×2 (10:32→11:22)
[2016-11-20] MEDS ORDERED: NORC5TAB PO (10:32)
[2016-11-20] MEDS: MORPHINE SULFATE 4 MG/ML INJ IV PUSH PRN (10:36)
--- NOTE | 2016-11-20 11:10 | PD.ONC.PN ---
Subjective Subjective Remarks Afebrile overnight. Patient resting in bed. No complaints. Just finished talking to Dr. Stevens. Objective Data Date Time Temp Pulse Resp B/P (MAP) Pulse Ox O2 Delivery O2 Flow Rate FiO2 11/20/16 08:00 97.4 85 18 137/79 (98) 96 11/20/16 04:00 97.5 85 18 134/84 (101) 94 11/20/16 00:00 97.3 92 20 146/92 (110) 94 11/19/16 21:00 88 11/19/16 20:00 97.7 85 18 144/88 (106) 94 11/19/16 16:00 98.0 82 19 153/95 (114) 96 11/19/16 12:00 98.0 72 19 143/82 (102) 96 11/20/16 11/20/16 11/20/16 07:00 15:00 23:00 Output Total 1 ml Balance -1 ml Result Diagram: 11/20/1670511/20/16 07 Laboratory Results Laboratory Tests Test 11/20/16 07:06 White Blood Count 11.5 TH/MM3 Red Blood Count 5.29 MIL/MM3 Hemoglobin 16.2 GM/DL Hematocrit 48.7 % Mean Corpuscular Volume 92.1 FL Mean Corpuscular Hemoglobin 30.5 PG Mean Corpuscular Hemoglobin Concent 33.2 % Red Cell Distribution Width 14.9 % Platelet Count 173 TH/MM3 Mean Platelet Volume 8.1 FL Neutrophils (%) (Auto) 81.2 % Lymphocytes (%) (Auto) 9.3 % Monocytes (%) (Auto) 9.4 % Eosinophils (%) (Auto) 0.0 % Basophils (%) (Auto) 0.1 % Neutrophils # (Auto) 9.3 TH/MM3 Lymphocytes # (Auto) 1.1 TH/MM3 Monocytes # (Auto) 1.1 TH/MM3 Eosinophils # (Auto) 0.0 TH/MM3 Basophils # (Auto) 0.0 TH/MM3 CBC Comment DIFF FINAL Differential Comment Blood Urea Nitrogen 18 MG/DL Creatinine 0.85 MG/DL Random Glucose 121 MG/DL Albumin 3.1 GM/DL Calcium Level 8.9 MG/DL Phosphorus Level 3.2 MG/DL Magnesium Level 2.3 MG/DL Sodium Level 136 MEQ/L Potassium Level 3.8 MEQ/L Chloride Level 99 MEQ/L Carbon Dioxide Level 27.8 MEQ/L Anion Gap 9 MEQ/L Estimat Glomerular Filtration Rate 91 ML/MIN Administered Medications Medications (Trade) Dose Ordered Sig/Ne Route PRN Reason Start Time Stop Time Status Last Admin Dose Admin Acetaminophen (Tylenol) 650 mg Q6H PRN PO PAIN 1-10 AND/OR FEVER >101F 11/16/16 13:15 11/17/16 14:06 Morphine Sulfate (Morphine Inj) 2 mg Q2H PRN IV PUSH PAIN SCALE 6 TO 10 11/16/16 13:15 11/20/16 10:36 Pantoprazole Sodium (Protonix) 40 mg DAILY PO 11/17/16 09:00 11/20/16 08:39 Senna/Docusate Sodium (Irene-Colace) 1 tab BID PO 11/16/16 21:00 11/20/16 08:38 Magnesium Hydroxide (Milk Of Magnesia Liq) 30 ml Q12H PRN PO MILD - MODERATE CONSTIPATION 11/16/16 13:15 11/17/16 20:45 Sennosides (Senokot) 17.2 mg Q12H PRN PO MODERATE - SEVERE CONSTIPATION 11/16/16 13:15 11/18/16 13:08 Lactulose (Lactulose Liq) 30 ml DAILY PRN PO SEVERE CONSITIPATION 11/16/16 13:15 11/18/16 10:10 Alprazolam (Xanax) 1 mg Q8H PRN PO ANXIETY 11/16/16 13:15 11/19/16 23:25 Oxcarbazepine (Trileptal) 300 mg BID PO 11/16/16 21:00 11/20/16 08:38 Objective Remarks GENERAL: Middle aged male sitting up in bed in [facility]. SKIN: Warm and dry. HEAD: Normocephalic. EYES: No injection or drainage. NECK: Supple, trachea midline. CARDIOVASCULAR: Regular rate and rhythm RESPIRATORY: Breath sounds equal bilaterally. No accessory muscle use. GASTROINTESTINAL: Abdomen soft, non-tender, nondistended. EXTREMITIES: No cyanosis NEUROLOGICAL: awake and alert, normal speech. independently ambulatory Assessment/Plan Problem List: (1) Glioblastoma multiforme of temporal lobe ICD Codes: C71.2 - Malignant neoplasm of temporal lobe Status: Acute Plan: -- not a candidate for further surgical intervention per neurosurgery. -- On decadron Hx/Workup: Patient was first diagnosed with glioblastoma in 2011. At that time he had a resection followed by radiation and Temodar. He was on maintenance Temodar for 1 year. He had progression of disease in February 2015 and had a reexcision which showed anaplastic glioma. He received stereotactic radiation therapy. He was placed on Temodar for approximately 10 months then switched back to Avastin which he completed earlier this year. Unfortunately he began to have aphasia and left-sided headache approximately 4 weeks ago. He was progressively more symptomatic and came to the emergency room where an MRI showed significant vasogenic edema on the left side of the brain Assessment 61-year-old male with history of glioblastoma admitted with aphasia and headache found to have recurrent tumor and significant vasogenic edema Plan 1. oncology clear for discharge. 2. follow up with primary oncologist, Dr Lovett in [facility] Attending Statement The exam, history, and the medical decision-making described in the above note were completed with the assistance of the mid-level provider. I reviewed and agree with the findings presented. I attest that I had a [id number] encounter with the patient on the same day, and personally performed and documented my assessment and findings in the medical record. Late entry. Aphasia stable, no headache. does not recommend further surgery. Pt can be d/c and f/u with to consider Avastin. Leona Ram Nov 20, 2016 11:10 Michael Valdez MD Nov 20, 2016 15:12
[2016-11-20] MEDS ORDERED: OXYC1TAB63 PO (11:22)
[2016-11-20 11:49] VITALS: BP 145/86; PULSE 84; RESP 18; TEMP 98; O2SAT 94
[2016-11-20] MEDS ORDERED: DEXAMETHASONE SOD PHOS 4 MG/ML VIAL IV PUSH SCH (12:00)
--- NOTE | 2016-11-20 19:20 | HHI.PR ---
Subjective Remarks Patient seen this morning around 10 AM. Says he is doing all right. Denies any chest pain or shortness breath. Headache continues however. Objective Vital Signs Date Time Temp Pulse Resp B/P (MAP) Pulse Ox O2 Delivery O2 Flow Rate FiO2 11/20/16 11:49 98.0 84 18 145/86 (105) 94 11/20/16 08:00 97.4 85 18 137/79 (98) 96 11/20/16 04:00 97.5 85 18 134/84 (101) 94 11/20/16 00:00 97.3 92 20 146/92 (110) 94 11/19/16 21:00 88 11/19/16 20:00 97.7 85 18 144/88 (106) 94 I/O 11/19/16 11/19/16 11/19/16 11/20/16 11/20/16 11/20/16 07:00 15:00 23:00 07:00 15:00 23:00 Intake Total 960 ml Output Total 1 ml Balance 960 ml -1 ml Intake Oral 960 ml Output Urine Total 1 ml # Voids 1 7 # Bowel Movements 1 0 Result Diagram: 11/20/1670511/20/16705 Objective Remarks GENERAL: Patient sitting up in bed. Appears comfortable. He is alert and oriented 3. no change on exam from yesterday. SKIN: Warm and dry. HEAD: Normocephalic. EYES: No scleral icterus. No injection or drainage. NECK: Supple, trachea midline. No JVD or lymphadenopathy. CARDIOVASCULAR: Regular rate and rhythm without murmurs, gallops, or rubs. RESPIRATORY: Breath sounds equal bilaterally. No accessory muscle use. GASTROINTESTINAL: Abdomen soft, non-tender, nondistended. MUSCULOSKELETAL: No cyanosis, or edema. BACK: Nontender without obvious deformity. No CVA tenderness. A/P Assessment and Plan ===11/20/16 //Elevated blood pressure. Blood pressure is acceptable today. //Glioblastoma with headache. Discussed with neurosurgery. We'll discharge home on dexamethasone to be tapered by oncology. Pain meds as needed for headache. A/P //glioblastoma- s/p resection continue with Decadron and Trileptal. continue with PT neurology,neurosurgery and oncology following. - //DVT prophylaxis with SCD's. Discharge Planning discharge home. Follow-up with oncology, neurosurgery. Trino Harrison MD Nov 20, 2016 19:20
--- NOTE | 2016-11-20 19:24 | HHI.DS ---
Discharge Summary Admission Date Nov 16, 2016 at 12:32 Discharge Date: Nov 20, 2016 Admitting Diagnosis Cerebral Edema (1) Cerebral mass ICD Code: G93.9 - Disorder of brain, unspecified Status: Acute (2) Glioblastoma multiforme of temporal lobe ICD Code: C71.2 - Malignant neoplasm of temporal lobe Status: Acute Procedures no invasive procedures. Brief History - From Admission 61 y/o man s/p resection of left hemispheric glioblastoma presents with neurological symptoms and CT evidence of mass effect from tumor recurrence left parietal region. Received decadron in [facility] ED and now transferred to [facility]. CBC/BMP: 11/20/16 0706 11/20/16 0706 Significant Findings Laboratory Tests Test 11/20/16 07:06 White Blood Count 11.5 TH/MM3 (4.0-11.0) Neutrophils (%) (Auto) 81.2 % (16.0-70.0) Monocytes (%) (Auto) 9.4 % (0.0-8.0) Neutrophils # (Auto) 9.3 TH/MM3 (1.8-7.7) Monocytes # (Auto) 1.1 TH/MM3 (0-0.9) Random Glucose 121 MG/DL (74-106) Albumin 3.1 GM/DL (3.4-5.0) Imaging Last Impressions Head CT 11/16/16 1112 Signed Impressions: Service Date/Time: Wednesday, November 16, 2016 11:28 - CONCLUSION: Deterioration in appearance of scan as described above. Contrast MRI is pending. Ronaldo Franco MD FACR Brain MRI 11/16/16 0000 Signed Impressions: Service Date/Time: Wednesday, November 16, 2016 14:29 - CONCLUSION: 1. Findings would be consistent with recurrent tumor and increasing vasogenic edema that now involves the left parietal occipital region. 2. I do not have any interval MRIs. Ronaldo Franco MD FACR PE at Discharge GENERAL: This is a well-nourished, well-developed patient, in no apparent distress. CARDIOVASCULAR: Regular rate and regular rhythm without murmurs, gallops, or rubs. RESPIRATORY: Clear to auscultation. Breath sounds equal bilaterally. No wheezes , rales, or rhonchi. GASTROINTESTINAL: Abdomen soft, non-tender, nondistended. Normal, active bowel sounds MUSCULOSKELETAL: Extremities without clubbing, cyanosis, or edema. NEURO: Alert & Oriented x4 to person, place, time, situation. Moves all ext x4 Hospital Course MRI shows recurrent tumor as above. Neurosurgery and oncology reconsult at. She was placed on IV dexamethasone with improvement. the patient is not a candidate for further radiation or chemotherapy as per neurosurgery.Patient will be discharged with by mouth dexamethasone, narcotics for pain control For problem-based summary from most recent progress note, please see below. ===11/20/16 //Elevated blood pressure. Blood pressure is acceptable today. //Glioblastoma with headache. Discussed with neurosurgery. We'll discharge home on dexamethasone to be tapered by oncology. Pain meds as needed for headache. A/P //glioblastoma- s/p resection continue with Decadron and Trileptal. continue with PT neurology,neurosurgery and oncology following. - //DVT prophylaxis with SCD's. Pt Condition on Discharge: Good Discharge Disposition: Discharge Home Discharge Time: > 30 minutes Discharge Instructions DIET: Follow Instructions for: Heart Healthy Diet Activities you can perform: Regular-No Restrictions Follow up Referrals: Neurosurgery - 1 Week with Edwin Stevens MD Oncology - 1 Week with Michael Valdez MD PCP Follow-up - 1 Week with Felipe Yates DO New Medications: Dexamethasone (Dexamethasone) 4 Mg Tab 4 MG PO Q6HR for Pain Management, #32 TAB 0 Refills please followup with Dr Stevens/Dr Valdez for further tapering. Oxycodone-Acetaminophen (Oxycodone-Acetaminophen) 5-325 mg Tab 1-2 TAB PO Q4H PRN for PAIN, #42 TAB 0 Refills Continued Medications: Alprazolam (Alprazolam) 1 Mg Tab 1 MG PO Q8H PRN for ANXIETY, TAB 0 Refills Multiple Vitamin (Multivitamins) 1 Cap Cap 1 CAP PO DAILY Oxcarbazepine (Oxcarbazepine) 300 Mg Tab 300 MG PO BID for Seizure Control, #60 TAB 0 Refills Pantoprazole (Pantoprazole) 40 Mg Tab 40 MG PO DAILY for Reflux, #30 TAB 0 Refills Sildenafil (Sildenafil) 20 Mg Tab 20 MG PO DIRECTED for Pulm. arterial hypertension, #90 TAB 0 Refills Testosterone Cypionate Inj (Testosterone Cypionate Inj) 100 Mg/Ml Inj 0.75 ML IM Q21D for Hormone Replacement, #1 VIAL 0 Refills Vilazodone (Viibryd) 20 Mg Tab 20 MG PO HS for Control Depression, #30 TAB 0 Refills Discontinued Medications: Dexamethasone (Dexamethasone) 1.5 Mg Tab 1.5 MG PO DAILY, TAB 0 Refills Dexamethasone (Dexamethasone) 0.5 Mg Tab 0.5 MG PO HS, TAB 0 Refills Ibuprofen (Ibuprofen) 400 Mg Tab 400 MG PO Q6H PRN for HEADACHES, TAB 0 Refills Trino Harrison MD Nov 20, 2016 19:24
== END 2016-11-20 12:52 | disposition home or self-care (01) | DRG 81 ==
LOC: PHED 10:55 → PHEDA 12:32 → N03B 21:45 → N05B 11-17 11:46
PROVIDERS: ADMIT Internal Medicine; ATTEND Internal Medicine
DX: G93.6 Cerebral edema (principal); C71.2 Malignant neoplasm of temporal lobe; R47.01 Aphasia; G40.909 Epilepsy, unspecified, not intractable, without status epilepticus; Z92.3 Personal history of irradiation; Z92.21 Personal history of antineoplastic chemotherapy; E03.9 Hypothyroidism, unspecified; E29.1 Testicular hypofunction; M19.90 Unspecified osteoarthritis, unspecified site; Z87.891 Personal history of nicotine dependence
CPT/HCPCS: 70450; 70553; 80053; 80069; 80156; 81001; 82550; 83735; 84443; 84484; 85025; 85610; 85730; 87641; 93005; 96374; A9579; J1100; J2270; J7030